=== PATIENT | female | born 1980 | race Two or more races ===

== ENCOUNTER 2016-07-14 16:03 | Emergency (ER) | payer MEDICAID ==
[2016-07-14 16:17] VITALS: BP 162/87
--- NOTE | 2016-07-14 16:53 | ER Document Report ---
HPI - HPI Patient complains to provider of: chronic bilateral foot pain Onset: Other - over a year Quality of pain: Achy, Throbbing Severity: Severe Pain Level: 5 Context: Patient presents emergency department with complaints of bilateral foot pain. She reports that she is a diabetic and experiencing diabetic neuropathy. She currently takes 300 mg of gabapentin 3 times a day with clear, 150 mg 3 times a day. She reports the medications are not helping. She denies trauma. Patient works at [employer] and her feet hurt more after she works. She denies other symptoms such as fever vomiting diarrhea. Associated Symptoms: None Exacerbated by: Walking Relieved by: Denies Similar symptoms previously: Yes Recently seen / treated by doctor: No - REPRODUCTIVE Reproductive: DENIES: : - DERM Skin Color: Normal Past Medical History - General Information source: Patient - Social History Smoking Status: Current Every Day Smoker Cigarette use (# per day): Yes Frequency of alcohol use: None Drug Abuse: None Occupation: Specialty [employer] Lives with: Family Family History: Arthritis, CAD, DM, Hyperlipidemia, Hypertension Patient has suicidal ideation: No Patient has homicidal ideation: No - Past Medical History Cardiac Medical History: Reports: Hx Congestive Heart Failure, Hx Hypertension Pulmonary Medical History: Reports: Hx Asthma Endocrine Medical History: Reports: Hx Diabetes Mellitus Type 2 Renal/ Medical History: Reports: Hx Kidney Stones. Denies: Hx Peritoneal Dialysis Past Surgical History: Reports: Hx Section - Immunizations Immunizations up to date: No Hx Diphtheria, Pertussis, Tetanus Vaccination: No Vertical Provider Document - CONSTITUTIONAL Agree With Documented VS: Yes Exam Limitations: No Limitations General Appearance: WD/WN, No Apparent Distress - INFECTION CONTROL TRAVEL OUTSIDE OF THE [place] IN LAST 30 DAYS: No - HEENT HEENT: Atraumatic, Normocephalic - NECK Neck: Supple - RESPIRATORY Respiratory: Breath Sounds Normal, No Respiratory Distress O2 Sat by Pulse Oximetry: 95 - MUSCULOSKELETAL/EXTREMETIES Musculoskeletal/Extremeties: MAEW, FROM, Tender - toes tender with palpation. Patient reports increased pain when walking. No erythema no swelling or warmth. Patient reports pain to the entire foot. no obvious deformity, no swelling - NEURO Level of Consciousness: Awake, Alert, Appropriate Motor/Sensory: No Motor Deficit - DERM Integumentary: Warm, Dry Course - Re-evaluation Re-evalutation: 07/14/16 17:26 Patient instructed to follow up with [facility] for adjustment of her medications. Until then continue gabapentin and Lyrica as prescribed. Patient was also instructed to try ibuprofen or naproxen. She was also instructed to wear good supporting foot wear, try a foot massage and pedicure. pt laughed, verbalized understanding no distress - Vital Signs Vital signs: Temp Pulse Resp BP Pulse Ox 98.3 F 104 H 18 162/87 H 95 07/14/16 16:15 07/14/16 16:15 07/14/16 16:15 07/14/16 16:15 07/14/16 16:15 Discharge - Discharge Clinical Impression: Diabetic neuropathy, Elevated blood pressure reading, chronic bilateral foot pain Condition: Stable Disposition: HOME, SELF-CARE Instructions: Neuropathy ([facility]) Additional Instructions: *You have been evaluated for chronic bilateral foot pain, diabetic neuropathy, elevated blood pressure reading *Rest/ Elevate *Take ibuprofen as indicated for pain *Follow up with your primary care provider for recheck *Takeyour medication as prescribed *Return to ED for worsening condition, changes, needs Monitor your blood pressure. Your blood pressure was elevated today. This may be because you were anxious, in pain or because you need medication. It is important to follow up with your primary care provider for full evaluation. Forms: Elevated Blood Pressure, Return to Work Referrals: [facility] [Primary Care Provider] - Follow up as needed
== END 2016-07-14 17:00 | disposition home or self-care (01) ==
LOC: ER 16:03
DX: G89.29 Other chronic pain (principal); M79.671 Pain in right foot; M79.672 Pain in left foot; E11.40 Type 2 diabetes mellitus with diabetic neuropathy, unspecified; Z79.899 Other long term (current) drug therapy; F17.210 Nicotine dependence, cigarettes, uncomplicated; I10 Essential (primary) hypertension; J45.909 Unspecified asthma, uncomplicated
CPT/HCPCS: 99283

== ENCOUNTER 2016-11-24 09:44 | Inpatient (IN) | payer MEDICAID ==
[2016-11-24] MEDS ORDERED: NORMAL SALINE 1000 ML 1,000 ML IV ONE ×2 (10:13→11:40)
--- NOTE | 2016-11-24 10:15 | ER Document Report ---
ED Medical Screen (RME) - General Chief Complaint: Flu Symptoms Stated Complaint: BACK PAIN Time Seen by Provider: 11/24/16 10:13 Notes: Patient has several days of fever vomiting cough congestion and weakness. TRAVEL OUTSIDE OF THE [place] IN LAST 30 DAYS: No - Related Data Allergies/Adverse Reactions: lisinopril [Lisinopril] Allergy (Severe, Verified 12/25/15 16:05) Swelling of Throat hydrocodone bitartrate [From Vicodin] Allergy (Intermediate, Verified 12/25/15 16:05) Hallucinations adalimumab [From Humira] Allergy (Verified 11/24/16 10:14) Past Medical History - Social History Chew tobacco use (# tins/day): No Frequency of alcohol use: None Drug Abuse: None - Past Medical History Cardiac Medical History: Reports: Hx Congestive Heart Failure, Hx Hypertension Pulmonary Medical History: Reports: Hx Asthma Endocrine Medical History: Reports: Hx Diabetes Mellitus Type 2 Renal/ Medical History: Reports: Hx Kidney Stones. Denies: Hx Peritoneal Dialysis Past Surgical History: Reports: Hx Section - Immunizations Immunizations up to date: No Hx Diphtheria, Pertussis, Tetanus Vaccination: No Physical Exam - Vital signs Vitals: Temp Pulse Resp BP Pulse Ox 99.1 F 116 H 18 179/85 H 97 11/24/16 09:52 11/24/16 09:52 11/24/16 09:52 11/24/16 09:52 11/24/16 09:52 Course - Vital Signs Vital signs: Temp Pulse Resp BP Pulse Ox 99.1 F 116 H 18 179/85 H 97 11/24/16 09:52 11/24/16 09:52 11/24/16 09:52 11/24/16 09:52 11/24/16 09:52
[2016-11-24 10:47] LABS: APPEARANCE,URINE CLEAR; BILIRUBIN,URINE NEGATIVE (NEGATIVE); GLUCOSE, URINE >=500 mg/dL (NEGATIVE); KETONES,URINE NEGATIVE (NEGATIVE); LEUKOCYTE ESTERASE,URINE NEGATIVE (NEGATIVE); NITRITE,URINE NEGATIVE (NEGATIVE); PROTEIN,URINE NEGATIVE (NEGATIVE); URINE SPECIFIC GRAVITY 1.003; UROBILINOGEN,URINE NEGATIVE mg/dL (<2.0)
[2016-11-24 10:50] LABS: ABSOLUTE BASOPHILS # (AUTO) 0.1 10^3/uL (0.0-0.2); ABSOLUTE EOSINOPHILS # (AUTO) 0.8 10^3/uL (0.0-0.6); ABSOLUTE LYMPHOCYTES (AUTO) 2.1 10^3/uL (0.5-4.7); ABSOLUTE MONOCYTES (AUTO) 1.3 10^3/uL (0.1-1.4); ABSOLUTE NEUT (AUTO) 10.3 10^3/uL (1.7-8.2); BASOPHILS % (AUTO) 0.6 % (0-2); EOSINOPHILS % (AUTO) 5.8 % (0-6); HEMATOCRIT 38.6 % (36.0-47.0); HGB HCT DIFFERENCE 0.4; MEAN CORPUSCULAR HEMOGLOBIN 25.1 pg (27.0-33.4); MEAN CORPUSCULAR HGB CONC 33.7 g/dL (32.0-36.0); MEAN CORPUSCULAR VOLUME 75 fl (80-97); MONOCYTES % (AUTO) 9.1 % (3-13); RED BLOOD COUNT 5.17 10^6/uL (3.72-5.28); RED CELL DISTRIBUTION WIDTH 16.4 % (11.5-14.0); SEGMENTED NEUTROPHILS % (AUTO) 70.5 % (42-78); WHITE BLOOD COUNT 14.6 10^3/uL (4.0-10.5)
[2016-11-24 10:54] LABS: VENOUS BLOOD BASE EXCESS 0.4 mmol/L; VENOUS BLOOD HCO3 24.5 mmol/L (20-32); VENOUS BLOOD PCO2 37.7 mmHg (35-63); VENOUS BLOOD PH 7.43 (7.30-7.42)
--- NOTE | 2016-11-24 10:56 | ER Document Report ---
ED Respiratory Problem - General Mode of Arrival: Ambulatory Information source: Patient TRAVEL OUTSIDE OF THE [place] IN LAST 30 DAYS: No - HPI Patient complains to provider of: Short of breath Onset: Yesterday Duration: Worse/persistent Severity: None Cough: Productive Sputum amount: Small Sputum color: Yellow Associated symptoms: Other - see narrative <ADÁN LAWRENCE - Last Filed: 11/24/16 11:09> <ELANA QUEEN - Last Filed: 11/24/16 14:14> - General Chief Complaint: Flu Symptoms Stated Complaint: BACK PAIN Time Seen by Provider: 11/24/16 10:13 Notes: Patient is a 36 year old insulin dependent diabetic female that presents to the emergency department today with complaints of a cough and nasal congestion beginning yesterday. Patient states that she has been coughing up yellow mucus. Patient complains of right flank pain and she states that it hurts when she breathes. (ADÁN LAWRENCE) - Related Data Allergies/Adverse Reactions: lisinopril [Lisinopril] Allergy (Severe, Verified 11/24/16 10:56) Swelling of Throat hydrocodone bitartrate [From Vicodin] Allergy (Intermediate, Verified 11/24/16 10:56) Hallucinations adalimumab [From Humira] Allergy (Verified 11/24/16 10:56) Home Medications: Current Home Medications Amlodipine Besylate [Norvasc 10 mg Tablet] 10 mg PO DAILY 11/24/16 [History] Atorvastatin Calcium [Lipitor 40 mg Tablet] 40 mg PO QHS 11/24/16 [History] Gabapentin [Neurontin 300 mg Capsule] 300 mg PO Q8 11/24/16 [History] Hydralazine HCl [Apresoline 50 mg Tablet] 75 mg PO Q12 11/24/16 [History] Hydrochlorothiazide [Hydrodiuril 25 mg Tablet] 25 mg PO DAILY 11/24/16 [History] Metformin HCl [Glucophage] 1,000 mg PO BID 11/24/16 [History] Past Medical History - Social History Smoking Status: Current Every Day Smoker Chew tobacco use (# tins/day): No Frequency of alcohol use: None Drug Abuse: None Family History: Arthritis, CAD, DM, Hyperlipidemia, Hypertension - Past Medical History Cardiac Medical History: Reports: Hx Congestive Heart Failure, Hx Hypertension Pulmonary Medical History: Reports: Hx Asthma Endocrine Medical History: Reports: Hx Diabetes Mellitus Type 2 Renal/ Medical History: Reports: Hx Kidney Stones. Denies: Hx Peritoneal Dialysis Past Surgical History: Reports: Hx Section - Immunizations Immunizations up to date: No Hx Diphtheria, Pertussis, Tetanus Vaccination: No <HOWARDADÁN - Last Filed: 11/24/16 11:09> Review of Systems - Review of Systems Constitutional: See HPI, Fever - subjective EENT: See HPI, Nose congestion Cardiovascular: No symptoms reported Respiratory: See HPI, Cough, Short of breath Gastrointestinal: No symptoms reported Genitourinary: No symptoms reported Female Genitourinary: No symptoms reported Musculoskeletal: No symptoms reported Skin: No symptoms reported Hematologic/Lymphatic: No symptoms reported Neurological/Psychological: No symptoms reported -: Yes All other systems reviewed and negative <ADÁN LAWRENCE - Last Filed: 11/24/16 11:09> Physical Exam <ADÁN LAWRENCE - Last Filed: 11/24/16 11:09> <ELANA QUEEN - Last Filed: 11/24/16 14:14> - Vital signs Vitals: Temp Pulse Resp BP Pulse Ox 99.1 F 116 H 18 179/85 H 97 11/24/16 09:52 11/24/16 09:52 11/24/16 09:52 11/24/16 09:52 11/24/16 09:52 - Notes Notes: Physical Exam: General: Alert, appears well. No acute distress. HEENT: Normocephalic. Atraumatic. PERRL. Extraocular movements intact. Oropharynx clear. Left TM is slightly injected. Neck: Supple. Non-tender. Respiratory: No respiratory distress. Decreased breath sounds bilaterally, rhonchi, wheezing, fine crackles in the right base. Cardiovascular: Regular rate and rhythm. Abdominal: Obese. Non-tender. No distension. Normal Bowel Sounds. Back: Bilateral CVA tenderness with percussion. No deformity or step off. Extremities: Moves all four extremities. Upper extremities: Normal inspection. Normal ROM. Lower extremities: 1-2+ pitting edema bilaterally. Normal ROM. Neurological: Normal cognition. AAOx4. Normal speech. Psychological: Normal affect. Normal Mood. Skin: Warm. Dry. Normal color. (ADÁN LAWRENCE) Course - Laboratory Result Diagrams: 11/24/16 10:33 11/24/16 10:33 <ADÁN LAWRENCE - Last Filed: 11/24/16 11:09> - Laboratory Result Diagrams: 11/24/16 10:33 11/24/16 10:33 - EKG Interpretation by Me Rate: Tachycardia - Rate 115, nonspecific ST and T-wave abnormalities though appear consistent with August 23, 2015. Left atrial enlargement, normal QRS duration - Consults Dr. Garcia Time consulted: 14:12 - Consult for admission <ELANA QUEEN - Last Filed: 11/24/16 14:14> - Re-evaluation Re-evalutation: 11/24/16 11:47 Patient does meet criteria for sepsis with a tachycardia, increased respiratory and white blood cell count rate. Clinically I thought she had a right sided pneumonia but I cannot clearly document this on x-ray. She is having significant bronchospasm so we will admit her to the hospital. 30 mL's per kilogram bolus would put this patient at 4.2 L Fluids and with her history of CHF, it would be more prudent to watch her after the first 2L NS Bolus. ( ELANA QUEEN) - Vital Signs Vital signs: Temp Pulse Resp BP Pulse Ox 99.1 F 116 H 15 141/88 H 95 11/24/16 09:52 11/24/16 09:52 11/24/16 14:01 11/24/16 14:00 11/24/16 14:01 - Laboratory Laboratory results interpreted by me: 11/24/16 11/24/16 11/24/16 10:20 10:33 10:33 WBC 14.6 H MCV 75 L MCH 25.1 L RDW 16.4 H Plt Count 486 H Absolute Neutrophils 10.3 H Absolute Eosinophils 0.8 H VBG pH Chloride 96 L Creatinine 0.50 L Glucose 236 H Lactic Acid Calcium 10.3 H Urine Glucose (UA) >=500 H 11/24/16 11/24/16 10:33 10:33 WBC MCV MCH RDW Plt Count Absolute Neutrophils Absolute Eosinophils VBG pH 7.43 H Chloride Creatinine Glucose Lactic Acid 2.6 H Calcium Urine Glucose (UA) Discharge <ADÁN LAWRENCE - Last Filed: 11/24/16 11:09> - Discharge Admitting Provider: Dr. Garcia Unit Admitted: Medical Floor <ELANA QUEEN - Last Filed: 11/24/16 14:14> - Discharge Clinical Impression: Pneumonia, Bronchospasm, Sepsis criteria, Diabetes mellitus Condition: Good Disposition: ADMITTED OBSERVATION Scribe Documentation - Scribe Written by Scribe:: Gavin Villegas, 11/24/2016 1117 acting as scribe for :: Gris <ADÁN LAWRENCE - Last Filed: 11/24/16 11:09>
[2016-11-24] MEDS ORDERED: IPRATROPIUM/ALBUTEROL 0.5-2.5 MG/3 ML AMPUL NEB ONE ×2 (10:57→14:14)
[2016-11-24 11:14] LABS: ALANINE AMINOTRANSFERASE 27 U/L (9-52); ALBUMIN 4.6 g/dL (3.5-5.0); ALKALINE PHOSPHATASE 106 U/L (38-126); ANION GAP 18 (5-19); ASPARTATE AMINO TRANSFERASE 18 U/L (14-36); BILIRUBIN,DIRECT 0.4 mg/dL (0.0-0.4); BILIRUBIN,TOTAL 0.6 mg/dL (0.2-1.3); BLOOD UREA NITROGEN 7 mg/dL (7-20); CALCIUM 10.3 mg/dL (8.4-10.2); CARBON DIOXIDE 25 mmol/L (22-30); CHLORIDE 96 mmol/L (98-107); GLUCOSE 236 mg/dL (75-110); POTASSIUM 4.2 mmol/L (3.6-5.0); SODIUM 138.5 mmol/L (137-145); TOTAL PROTEIN 8.1 g/dL (6.3-8.2)
[2016-11-24] MEDS ORDERED: ACETAMINOPHEN WITH CODEINE #3 TABLET PO ONE (11:31)
[2016-11-24] MEDS ORDERED: CEFTRIAXONE 1 GM/D5W RTU 1 GM/50 ML RTUPB IV ONE (11:32)
[2016-11-24] MEDS ORDERED: METHYLPREDNISOLONE INJ 125 MG/2 ML SDV IV ONE (11:44)
[2016-11-24] MEDS ORDERED: AZITHROMYCIN INJ 500 MG VIAL IV ONE (11:45)
--- NOTE | 2016-11-24 11:48 | RADIOLOGY REPORT (SQ) ---
EXAM DESCRIPTION: CHEST PA/LAT COMPLETED DATE/TIME: 11/24/2016 11:17 am REASON FOR STUDY: cough COMPARISON: Two-view chest 08/23/2015, 11/13/2014 EXAM PARAMETERS: NUMBER OF VIEWS: two views TECHNIQUE: Digital Frontal and Lateral radiographic views of the chest acquired. RADIATION DOSE: NA LIMITATIONS: none FINDINGS: LUNGS AND PLEURA: No opacities, masses or pneumothorax. No pleural effusion. MEDIASTINUM AND HILAR STRUCTURES: No masses or contour abnormalities. HEART AND VASCULAR STRUCTURES: Heart normal size. No evidence for failure. BONES: No acute findings. HARDWARE: None in the chest. OTHER: No other significant finding. IMPRESSION: NO SIGNIFICANT RADIOGRAPHIC FINDING IN THE CHEST. TECHNICAL DOCUMENTATION: JOB ID: [id number] [employer]- All Rights Reserved
--- NOTE | 2016-11-24 13:59 | EKG REPORT ---
SEVERITY:- ABNORMAL ECG - SINUS TACHYCARDIA PROBABLE LEFT ATRIAL ABNORMALITY ABNORMAL Q SUGGESTS ANTERIOR INFARCT : Confirmed by: Jake Yusuf MD 24-Nov-2016 13:58:38
[2016-11-24] MEDS ORDERED: LEVALBUTEROL HCL NEB 1.25 MG/3 ML AMPUL NEB PRN (16:54)
[2016-11-24] MEDS ORDERED: NORMAL SALINE 1000 ML 1,000 ML IV PRN (16:54)
[2016-11-24] MEDS ORDERED: ONDANSETRON HCL INJ/PF 4 MG/2 ML SDV IV PRN (17:17)
[2016-11-24] MEDS ORDERED: ACETAMINOPHEN 325 MG TABLET PO PRN (17:17)
[2016-11-24] MEDS ORDERED: DEXTROSE 50%-WATER 25 GM/50 ML DISP.SYRIN IV PRN ×2 (17:30)
[2016-11-24] MEDS ORDERED: GLUCAGON,HUMAN RECOMB 1 MG INJ IM PRN (17:30)
[2016-11-24] MEDS ORDERED: DEXTROSE 40% GEL 15 GM TUBE PO PRN ×2 (17:30)
--- NOTE | 2016-11-24 17:48 | PDOC H&P ---
History of Present Illness Admission Date/PCP: 11/24/16 14:24 MEÑO HUNTER Patient complains of: Cough and fever History of Present Illness: MOLLY GENTILE is a 36 year old female, with history of diabetes as well as hypertension who presents to the emergency room because of increasing and worsening cough for the last 24 hours. Patient started having cough and wheezing for the past 3 days. There is phlegm that is yellow in color. She has more shortness of breath on exertion. Denies paroxysmal nocturnal dyspnea or any orthopnea. The patient has some sinus congestion and mild sore throat. This subsequently developed chest congestion and wheezing with associated low- grade fever. Patient measured it at 99.5. Because of the worsening cough earlier upon waking up, she decided to go to the emergency room for evaluation. Chest x-ray did not reveal any acute infiltrate but the patient was noted to be tachycardic with low-grade fever elevated WBC and elevated lactic acid level. The patient was begun on sepsis protocol and was referred for admission. Past Medical History Cardiac Medical History: Reports: Congestive Heart Failure, Hypertension Pulmonary Medical History: Reports: Asthma Endocrine Medical History: Reports: Diabetes Mellitus Type 2 Psychiatric Medical History: Reports: Depression Past Surgical History Past Surgical History: Reports: Section Social History Information Source: Patient Smoking Status: Current Every Day Smoker Cigarettes Packs Per Day: 1 Number of Years Smokin Last Time Smoked: 11/22/16 Frequency of Alcohol Use: Rare Hx Recreational Drug Use: No Drugs: None Hx Prescription Drug Abuse: No - Advance Directive Resuscitation Status: Full Code Family History Family History: Arthritis, CAD, DM, Hyperlipidemia, Hypertension Parental Family History Reviewed: Yes Children Family History Reviewed: Yes Sibling(s) Family History Reviewed.: Yes Medication/Allergy Home Medications: Amlodipine Besylate [Norvasc 10 mg Tablet] 10 mg PO DAILY 11/24/16 Atorvastatin Calcium [Lipitor 40 mg Tablet] 40 mg PO QHS 11/24/16 Gabapentin [Neurontin 300 mg Capsule] 300 mg PO Q8 11/24/16 Hydralazine HCl [Apresoline 50 mg Tablet] 75 mg PO Q12 11/24/16 Hydrochlorothiazide [Hydrodiuril 25 mg Tablet] 25 mg PO DAILY 11/24/16 Metformin HCl [Glucophage] 1,000 mg PO BID 11/24/16 Pregabalin [Lyrica] 150 mg PO Q8 11/24/16 Allergies/Adverse Reactions: lisinopril [Lisinopril] Allergy (Severe, Verified 11/24/16 10:56) Swelling of Throat hydrocodone bitartrate [From Vicodin] Allergy (Intermediate, Verified 11/24/16 10:56) Hallucinations adalimumab [From Humira] Allergy (Verified 11/24/16 10:56) Review of Systems Constitutional: ABSENT: chills, fever(s), headache(s), weight gain, weight loss Eyes: ABSENT: visual disturbances Ears: ABSENT: hearing changes Nose, Mouth, and Throat: PRESENT: headache(s), sore throat. ABSENT: mouth pain , vertigo Cardiovascular: PRESENT: dyspnea on exertion, edema - Chronic. ABSENT: chest pain, orthropnea, palpitations Respiratory: PRESENT: cough, sputum - Yellowish. ABSENT: hemoptysis Gastrointestinal: ABSENT: abdominal pain, constipation, diarrhea, hematemesis, hematochezia, melena, nausea, vomiting Genitourinary: ABSENT: dysuria, hematuria Musculoskeletal: ABSENT: joint swelling Integumentary: ABSENT: rash, wounds Neurological: ABSENT: abnormal gait, abnormal speech, confusion, dizziness, focal weakness, syncope Psychiatric: ABSENT: anxiety, depression, homidical ideation, suicidal ideation Endocrine: ABSENT: cold intolerance, heat intolerance, polydipsia, polyuria Hematologic/Lymphatic: ABSENT: easy bleeding, easy bruising Physical Exam Vital Signs: Temp Pulse Resp BP Pulse Ox 98.3 F 112 H 16 136/66 H 93 11/24/16 16:46 11/24/16 16:46 11/24/16 16:46 11/24/16 16:46 11/24/16 16:46 General appearance: PRESENT: no acute distress, morbidly obese Head exam: PRESENT: atraumatic, normocephalic Eye exam: PRESENT: conjunctiva pink, EOMI, PERRLA. ABSENT: scleral icterus Ear exam: PRESENT: normal external ear exam Mouth exam: PRESENT: moist, neck supple, tongue midline Throat exam: ABSENT: post pharyngeal erythema, tonsillar erythema Neck exam: ABSENT: carotid bruit, JVD, lymphadenopathy, thyromegaly Respiratory exam: PRESENT: clear to auscultation terry - Anteriorly, wheezes - Mild posteriorly bilateral. ABSENT: rales, rhonchi Cardiovascular exam: PRESENT: RRR, tachycardia. ABSENT: diastolic murmur, rubs , systolic murmur Pulses: PRESENT: normal dorsalis pedis pul Vascular exam: PRESENT: normal capillary refill GI/Abdominal exam: PRESENT: normal bowel sounds, soft. ABSENT: distended - Obese, guarding, mass, organolmegaly, rebound, tenderness Rectal exam: PRESENT: deferred Extremities exam: PRESENT: full ROM, other - Nonpitting edema bilateral lower extremities. ABSENT: calf tenderness, clubbing Neurological exam: PRESENT: alert, awake, oriented to person, oriented to place , oriented to time, oriented to situation Psychiatric exam: PRESENT: appropriate affect, normal mood. ABSENT: homicidal ideation, suicidal ideation Skin exam: PRESENT: dry, intact, warm. ABSENT: cyanosis, rash Results Laboratory Results: 11/24/16 14:38 Lactic Acid 2.7 H Impressions: Chest X-Ray 11/24/16 10:14 IMPRESSION: NO SIGNIFICANT RADIOGRAPHIC FINDING IN THE CHEST. Assessment & Plan - Diagnosis (1) Sepsis Qualifiers: Sepsis type: sepsis due to unspecified organism Qualified Code(s): A41.9 - Sepsis, unspecified organism Is this a current diagnosis for this admission?: Yes (2) Exacerbation of asthma Is this a current diagnosis for this admission?: Yes (3) Acute bronchitis Qualifiers: Bronchitis organism: unspecified organism Qualified Code(s): J20.9 - Acute bronchitis, unspecified Is this a current diagnosis for this admission?: Yes (4) Acute sinusitis Qualifiers: Sinusitis location: unspecified location Recurrence: not specified as recurrent Qualified Code(s): J01.90 - Acute sinusitis, unspecified Is this a current diagnosis for this admission?: Yes (5) Hypercalcemia Is this a current diagnosis for this admission?: Yes (6) Diabetes mellitus type 2 in obese Is this a current diagnosis for this admission?: Yes (7) Essential hypertension Is this a current diagnosis for this admission?: Yes (8) Hirsutism Is this a current diagnosis for this admission?: Yes - Time Time Spent: 50 to 70 Minutes - Inpatient Certification Based on my medical assessment, after consideration of the patient's comorbidities, presenting symptoms, or acuity I expect that the services needed warrant INPATIENT care.: Yes I certify that my determination is in accordance with my understanding of Medicare's requirements for reasonable and necessary INPATIENT services [42 CFR 412.3e].: Yes Medical Necessity: Significant Comorbidiites Make Outpatient Treatment Too Risky , Need For IV Fluids, Need for IV Antibiotics Post Hospital Care: D/C [employer] Documentation - Plan Summary Plan Summary: The patient will be admitted to telemetry. We will begin the patient on steroids and [id number] nebulizers. Antibiotic with Levaquin will be started, patient will be hydrated with normal saline and electrolytes will be monitored. Cultures were sent in the emergency room and will be followed. Lovenox for DVT prophylaxis. Supplemental oxygen will be placed. Further testing depends on the initial evaluations outlined above.
[2016-11-24] MEDS: LEVALBUTEROL HCL NEB 1.25 MG/3 ML AMPUL NEB SCH (19:51)
[2016-11-24] MEDS: GABAPENTIN 300 MG CAPSULE PO SCH (22:00)
[2016-11-24] MEDS: DOCUSATE SODIUM 100 MG CAPSULE PO SCH (22:00)
[2016-11-24] MEDS: HYDRALAZINE HCL 50 MG TABLET PO SCH (22:01)
[2016-11-24] MEDS: ATORVASTATIN CALCIUM 40 MG TABLET PO SCH (22:02)
[2016-11-24] MEDS: PREGABALIN 75 MG CAPSULE PO SCH (22:02)
[2016-11-24] MEDS: INSULIN REG, HUMAN 100 UNIT/ML 3 ML VIAL (PYX) SUBCUT PRN (23:05)
[2016-11-25] MEDS: LEVALBUTEROL HCL NEB 1.25 MG/3 ML AMPUL NEB SCH ×7 (00:07→23:30)
[2016-11-25 05:35] LABS: ANION GAP 13 (5-19); BLOOD UREA NITROGEN 10 mg/dL (7-20); CALCIUM 10.4 mg/dL (8.4-10.2); CARBON DIOXIDE 24 mmol/L (22-30); CHLORIDE 102 mmol/L (98-107); CREATININE RESULT 0.45 mg/dL (0.52-1.25); GLUCOSE 252 mg/dL (75-110); POTASSIUM 4.3 mmol/L (3.6-5.0); SODIUM 138.8 mmol/L (137-145)
[2016-11-25] MEDS: PREGABALIN 75 MG CAPSULE PO SCH (06:20)
[2016-11-25] MEDS: LANSOPRAZOLE 30 MG TAB.RAP.DR PO SCH (06:20)
[2016-11-25] MEDS: GABAPENTIN 300 MG CAPSULE PO SCH ×3 (06:20→21:10)
[2016-11-25] MEDS ORDERED: FLUCONAZOLE 100 MG TABLET PO ONE (09:00)
[2016-11-25] MEDS ORDERED: LEVOFLOXACIN 750 MG/D5W RTU 750 MG/150 ML RTUPB IV SCH (10:00)
[2016-11-25] MEDS: HYDRALAZINE HCL 50 MG TABLET PO SCH ×2 (10:00→21:10)
[2016-11-25] MEDS: PREDNISONE 20 MG TABLET PO SCH (10:01)
[2016-11-25] MEDS: DOCUSATE SODIUM 100 MG CAPSULE PO SCH ×2 (10:01→17:48)
[2016-11-25] MEDS: AMLODIPINE BESYLATE 10 MG TABLET PO SCH (10:02)
[2016-11-25] MEDS: ENOXAPARIN SODIUM INJ 40 MG/0.4 ML DISP.SYRIN SUBCUT SCH (10:02)
--- NOTE | 2016-11-25 13:55 | PDOC PROGRESS REPORT ---
Subjective Progress Note for:: 11/25/16 Subjective:: Patient complains of vaginal discharge and itching. Shortness of breath is better. Wheezing is less. No diarrhea nausea or vomiting. No chills or fever. No reported worsening respiratory status. Physical Exam Vital Signs: Temp Pulse Resp BP Pulse Ox 98.3 F 112 H 16 138/77 H 95 11/25/16 07:54 11/25/16 13:26 11/25/16 12:47 11/25/16 07:54 11/25/16 12:47 Pulse Oximeter Continuous Start: 11/24/16 17: 25 Freq: RTQ4 Status: Active Document 11/25/16 12:47 JDR (Rec: 11/25/16 12:48 JDR [email or web address]) Pulse Oximetry Assessment Oxygen Saturation (92-100) 95 Oxygen Delivery Method Room Air Fraction of Inspired Oxygen (FIO2) 21 Equipment Usage Equipment in Use Continuous SpO2 Machine # 10 Intake & Output 11/24/16 11/25/16 11/26/16 06:59 06:59 06:59 Intake Total 2802 480 Output Total 1500 600 Balance 1302 -120 Weight 142.3 kg General appearance: PRESENT: no acute distress, cooperative, morbidly obese Head exam: PRESENT: normocephalic Eye exam: PRESENT: EOMI Mouth exam: PRESENT: moist, neck supple Neck exam: ABSENT: JVD Respiratory exam: PRESENT: wheezes - Mild posteriorly bilateral improved compared to yesterday.. ABSENT: crackles, rhonchi Cardiovascular exam: PRESENT: RRR. ABSENT: gallop GI/Abdominal exam: PRESENT: normal bowel sounds, soft. ABSENT: distended - Obese, tenderness Extremities exam: PRESENT: other - Nonpitting edema. Neurological exam: PRESENT: alert, awake, oriented to situation Skin exam: PRESENT: dry, warm. ABSENT: cyanosis Results Laboratory Results: 11/25/16 04:48 11/25/16 04:48 Sodium 138.8 Potassium 4.3 Chloride 102 Carbon Dioxide 24 Anion Gap 13 BUN 10 Creatinine 0.45 L Est GFR ( Amer) > 60 Est GFR (Non-Af Amer) > 60 Glucose 252 H Calcium 10.4 H Impressions: Chest X-Ray 11/24/16 10:14 IMPRESSION: NO SIGNIFICANT RADIOGRAPHIC FINDING IN THE CHEST. Assessment & Plan - Diagnosis (1) Sepsis Qualifiers: Sepsis type: sepsis due to unspecified organism Qualified Code(s): A41.9 - Sepsis, unspecified organism Is this a current diagnosis for this admission?: Yes (2) Exacerbation of asthma Is this a current diagnosis for this admission?: Yes (3) Acute bronchitis Qualifiers: Bronchitis organism: unspecified organism Qualified Code(s): J20.9 - Acute bronchitis, unspecified Is this a current diagnosis for this admission?: Yes (4) Acute sinusitis Qualifiers: Sinusitis location: unspecified location Recurrence: not specified as recurrent Qualified Code(s): J01.90 - Acute sinusitis, unspecified Is this a current diagnosis for this admission?: Yes (5) Hypercalcemia Is this a current diagnosis for this admission?: Yes (6) Diabetes mellitus type 2 in obese Is this a current diagnosis for this admission?: Yes (7) Essential hypertension Is this a current diagnosis for this admission?: Yes (8) Hirsutism Is this a current diagnosis for this admission?: Yes - Time Time Spent with patient: 25-34 minutes - Plan Summary Plan Summary: Continue steroids and nebulizers as well as antibiotics. Give Diflucan. Follow cultures. The patient continues to improve in the morning possibly can be discharged home. Continue to hold diuretic due to hypercalcemia.
[2016-11-25] MEDS: INSULIN REG, HUMAN 100 UNIT/ML 3 ML VIAL (PYX) SUBCUT PRN ×3 (14:39→21:54)
[2016-11-25] MEDS: NORMAL SALINE 1000 ML 1,000 ML IV PRN (17:47)
[2016-11-25] MEDS: ATORVASTATIN CALCIUM 40 MG TABLET PO SCH (21:10)
[2016-11-26] MEDS: LEVALBUTEROL HCL NEB 1.25 MG/3 ML AMPUL NEB SCH ×3 (03:04→11:38)
[2016-11-26] MEDS: GABAPENTIN 300 MG CAPSULE PO SCH (06:16)
[2016-11-26] MEDS: LANSOPRAZOLE 30 MG TAB.RAP.DR PO SCH (06:16)
[2016-11-26 06:33] LABS: ANION GAP 10 (5-19); BLOOD UREA NITROGEN 12 mg/dL (7-20); CALCIUM 9.1 mg/dL (8.4-10.2); CARBON DIOXIDE 25 mmol/L (22-30); CHLORIDE 104 mmol/L (98-107); CREATININE RESULT 0.52 mg/dL (0.52-1.25); GLUCOSE 227 mg/dL (75-110); POTASSIUM 3.4 mmol/L (3.6-5.0); SODIUM 139.4 mmol/L (137-145)
[2016-11-26] MEDS: INSULIN REG, HUMAN 100 UNIT/ML 3 ML VIAL (PYX) SUBCUT PRN (08:04)
[2016-11-26] MEDS: NORMAL SALINE 1000 ML 1,000 ML IV PRN (08:07)
[2016-11-26] MEDS ORDERED: POTASSIUM CHLORIDE 10 MEQ TABLET.SA PO ONE (09:01)
--- NOTE | 2016-11-26 09:17 | PDOC DISCHARGE SUMMARY ---
General - Admit/Disc Date/PCP Admission Date/Primary Care Provider: 11/24/16 16:32 MEÑO HUNTER Discharge Date: 11/26/16 - Discharge Diagnosis (1) Sepsis Is this a current diagnosis for this admission?: Yes (2) Exacerbation of asthma Is this a current diagnosis for this admission?: Yes (3) Acute bronchitis Is this a current diagnosis for this admission?: Yes (4) Acute sinusitis Is this a current diagnosis for this admission?: Yes (5) Hypercalcemia Is this a current diagnosis for this admission?: Yes (6) Diabetes mellitus type 2 in obese Is this a current diagnosis for this admission?: Yes (7) Essential hypertension Is this a current diagnosis for this admission?: Yes (8) Hirsutism Is this a current diagnosis for this admission?: Yes - Additional Information Resuscitation Status: Full Code Discharge Diet: Cardiac - Low-fat low-salt, Diabetic - No concentrated sweets Discharge Activity: Activity As Tolerated, Balance Activity w/Rest, Slowly Increase Activity Home Medications: Amlodipine Besylate [Norvasc 10 mg Tablet] 10 mg PO DAILY 11/24/16 Atorvastatin Calcium [Lipitor 40 mg Tablet] 40 mg PO QHS 11/24/16 Gabapentin [Neurontin 300 mg Capsule] 300 mg PO Q8 11/24/16 Hydralazine HCl [Apresoline 50 mg Tablet] 75 mg PO Q12 11/24/16 Metformin HCl [Glucophage] 1,000 mg PO BID 11/24/16 Pregabalin [Lyrica] 150 mg PO Q8 11/24/16 Fluconazole [Diflucan] 150 mg PO ONCE PRN #1 tablet 11/26/16 Levalbuterol HCl [Xopenex Neb 1.25 mg/3 ml Ampul] 1.25 mg NEB RTQ4 #120 vial.neb 11/26/16 Levofloxacin [Levaquin 750 mg Tablet] 750 mg PO DAILY #10 tab 11/26/16 Prednisone [Sterapred Ds] 1 pkg PO ASDIR PRN 12 Days tab.ds.pk 11/26/16 Additional Information: Basic metabolic panel as outpatient with primary care physician in 1 week. Follow-up final results of blood culture and sputum culture outpatient with primary care physician. Return to work on November 29, 2016. Return to the emergency room if symptoms recur or worsens. History of Present Illness Patient complains of: Cough History of Present Illness: MOLLY GENTILE is a 36 year old female, with history of diabetes as well as hypertension who presents to the emergency room because of increasing and worsening cough for the last 24 hours. Patient started having cough and wheezing for the past 3 days. There is phlegm that is yellow in color. She has more shortness of breath on exertion. Denies paroxysmal nocturnal dyspnea or any orthopnea. The patient has some sinus congestion and mild sore throat. This subsequently developed chest congestion and wheezing with associated low- grade fever. Patient measured it at 99.5. Because of the worsening cough earlier upon waking up, she decided to go to the emergency room for evaluation. Chest x-ray did not reveal any acute infiltrate but the patient was noted to be tachycardic with low-grade fever elevated WBC and elevated lactic acid level. The patient was begun on sepsis protocol and was referred for admission. Hospital Course Hospital Course: The patient was admitted to telemetry. Patient was hydrated with normal saline. There is no infiltrate on chest x-ray. Patient was begun on steroids and [id number] nebulizer. Intravenous antibiotic was likewise given. Patient symptomatically improved the following morning. Electrolytes were monitored and they were replaced. Patient complains of some vaginal itchiness and stated that she developed yeast infection after intake of antibiotic therefore Diflucan 1 dose was given. The patient improved after 48 hours of treatment. Room air oxygenation and discharge was greater than 90%. The rest of the hospital stays unremarkable. Patient was eventually discharged home improved. Charge senior program planner was consulted for medication assistance. Physical Exam Vital Signs: Temp Pulse Resp BP Pulse Ox 98.2 F 96 18 143/85 H 96 11/26/16 07:27 11/26/16 07:42 11/26/16 07:42 11/26/16 07:27 11/26/16 07:42 Pulse Oximeter Continuous Start: 11/24/16 17: 25 Freq: RTQ4 Status: Active Document 11/26/16 07:42 LDA (Rec: 11/26/16 08:51 [email or web address] [email or web address]) Pulse Oximetry Assessment Oxygen Saturation (92-100) 96 Oxygen Delivery Method Room Air Fraction of Inspired Oxygen (FIO2) 21 Equipment Usage Equipment in Use Continuous SpO2 Machine # [id number] Intake & Output 11/25/16 11/26/16 11/27/16 06:59 06:59 06:59 Intake Total 2802 6220 Output Total 2790 3900 Balance 1302 2396 Weight 142.3 kg 142.3 kg General appearance: PRESENT: no acute distress, cooperative, obese Head exam: PRESENT: normocephalic Eye exam: PRESENT: EOMI Mouth exam: PRESENT: moist, neck supple Neck exam: ABSENT: JVD Respiratory exam: PRESENT: clear to auscultation terry. ABSENT: rhonchi, wheezes Cardiovascular exam: PRESENT: RRR. ABSENT: gallop GI/Abdominal exam: PRESENT: soft. ABSENT: distended, tenderness Extremities exam: PRESENT: other - Trace pretibial edema Neurological exam: PRESENT: alert, awake, oriented to situation Skin exam: PRESENT: dry, warm. ABSENT: abrasion Results Laboratory Results: 11/26/16 05:26 11/26/16 05:26 Sodium 139.4 Potassium 3.4 L Chloride 104 Carbon Dioxide 25 Anion Gap 10 BUN 12 Creatinine 0.52 Est GFR ( Amer) > 60 Est GFR (Non-Af Amer) > 60 Glucose 227 H Calcium 9.1 Impressions: Chest X-Ray 11/24/16 10:14 IMPRESSION: NO SIGNIFICANT RADIOGRAPHIC FINDING IN THE CHEST. Qualifiers PATEINT BEING DISCHARGED WITH ANY OF THE FOLLOWING DIAGNOSIS?: No Plan Discharge Plan: Follow-up with primary care physician in 1 week Time Spent: Less than 30 Minutes
[2016-11-26] MEDS: AMLODIPINE BESYLATE 10 MG TABLET PO SCH (09:38)
[2016-11-26] MEDS: HYDRALAZINE HCL 50 MG TABLET PO SCH (09:38)
[2016-11-26] MEDS: PREDNISONE 20 MG TABLET PO SCH (09:39)
[2016-11-26] MEDS: ENOXAPARIN SODIUM INJ 40 MG/0.4 ML DISP.SYRIN SUBCUT SCH (09:40)
[2016-11-26] MEDS: DOCUSATE SODIUM 100 MG CAPSULE PO SCH (09:40)
[2016-11-26] MEDS ORDERED: LEVOFLOXACIN 750 MG TABLET PO SCH (10:00)
[2016-11-26 13:05] VITALS: BP 140/78
== END 2016-11-26 13:25 | disposition home or self-care (01) | DRG 872 ==
LOC: ER 09:44 → EH 14:24 → 4N 16:05 → OBSVTOIN 16:32
DX: A41.9 Sepsis, unspecified organism (principal); J45.901 Unspecified asthma with (acute) exacerbation; Z68.42 Body mass index [BMI] 45.0-49.9, adult; J20.9 Acute bronchitis, unspecified; J01.90 Acute sinusitis, unspecified; I11.0 Hypertensive heart disease with heart failure; I50.9 Heart failure, unspecified; E11.9 Type 2 diabetes mellitus without complications; B37.3 Candidiasis of vulva and vagina; F32.9 Major depressive disorder, single episode, unspecified; F17.210 Nicotine dependence, cigarettes, uncomplicated; E83.52 Hypercalcemia; L68.0 Hirsutism; E66.9 Obesity, unspecified; Z82.61 Family history of arthritis; Z79.84 Long term (current) use of oral hypoglycemic drugs; Z88.8 Allergy status to other drugs, medicaments and biological substances; Z82.49 Family history of ischemic heart disease and other diseases of the circulatory system; Z83.3 Family history of diabetes mellitus
CPT/HCPCS: 36415; 71020; 80048; 80053; 81001; 81025; 82803; 82962; 83605; 84443; 85025; 87040; 87070; 87086; 87205; 87804; 93005; 93010; 94640; 94762; 96361; 96365; 96367; 96375; 99285; J0456; J0696; J1650; J1815; J1956; J2930; J3490; J7030; J7512; J7620

== ENCOUNTER 2017-04-27 22:35 | Emergency (ER) | payer MEDICAID ==
--- NOTE | 2017-04-28 00:13 | ER Document Report ---
ED Medical Screen (RME) - General Chief Complaint: Leg pain and swelling Stated Complaint: LEFT LEG PAIN Time Seen by Provider: 04/28/17 00:10 Mode of Arrival: Ambulatory Information source: Patient Notes: 36 yo diabetic 2, obese, htn, female c/o left lower calf pain/swelling and medial left knee pain for 3 days. No injury. Mom told her it might be a blood clot. No hx DVT, PE. No chest pain or SOB. TRAVEL OUTSIDE OF THE [place] IN LAST 30 DAYS: No - Related Data Allergies/Adverse Reactions: lisinopril [Lisinopril] Allergy (Severe, Verified 11/24/16 10:56) Swelling of Throat hydrocodone bitartrate [From Vicodin] Allergy (Intermediate, Verified 11/24/16 10:56) Hallucinations adalimumab [From Humira] Allergy (Verified 11/24/16 10:56) Past Medical History - Past Medical History Cardiac Medical History: Reports: Hx Congestive Heart Failure, Hx Hypertension Pulmonary Medical History: Reports: Hx Asthma Endocrine Medical History: Reports: Hx Diabetes Mellitus Type 2 Renal/ Medical History: Reports: Hx Kidney Stones. Denies: Hx Peritoneal Dialysis Psychiatric Medical History: Reports: Hx Depression Past Surgical History: Reports: Hx Section - Immunizations Immunizations up to date: No Hx Diphtheria, Pertussis, Tetanus Vaccination: No Physical Exam - Vital signs Vitals: Temp Pulse Resp BP Pulse Ox 97.8 F 111 H 20 156/96 H 97 04/27/17 22:48 04/27/17 22:48 04/27/17 22:48 04/27/17 22:48 04/27/17 22:48 Course - Vital Signs Vital signs: Temp Pulse Resp BP Pulse Ox 97.8 F 111 H 20 156/96 H 97 04/27/17 22:48 04/27/17 22:48 04/27/17 22:48 04/27/17 22:48 04/27/17 22:48
[2017-04-28 00:48] LABS: ABSOLUTE BASOPHILS # (AUTO) 0.2 10^3/uL (0.0-0.2); ABSOLUTE EOSINOPHILS # (AUTO) 0.6 10^3/uL (0.0-0.6); ABSOLUTE LYMPHOCYTES (AUTO) 4.1 10^3/uL (0.5-4.7); ABSOLUTE MONOCYTES (AUTO) 0.8 10^3/uL (0.1-1.4); ABSOLUTE NEUT (AUTO) 10.6 10^3/uL (1.7-8.2); BASOPHILS % (AUTO) 1.1 % (0-2); EOSINOPHILS % (AUTO) 3.6 % (0-6); HEMATOCRIT 41.2 % (36.0-47.0); HEMOGLOBIN 13.7 g/dL (12.0-15.5); MEAN CORPUSCULAR HEMOGLOBIN 25.8 pg (27.0-33.4); MEAN CORPUSCULAR HGB CONC 33.2 g/dL (32.0-36.0); MEAN CORPUSCULAR VOLUME 78 fl (80-97); MONOCYTES % (AUTO) 5.1 % (3-13); PLATELET COUNT 529 10^3/uL (150-450); RED CELL DISTRIBUTION WIDTH 15.3 % (11.5-14.0); SEGMENTED NEUTROPHILS % (AUTO) 65.2 % (42-78); TOTAL CELLS COUNTED % (AUTO) 100 %; WHITE BLOOD COUNT 16.3 10^3/uL (4.0-10.5)
[2017-04-28 01:03] LABS: ALANINE AMINOTRANSFERASE 41 U/L (9-52); ALBUMIN 4.7 g/dL (3.5-5.0); ALKALINE PHOSPHATASE 87 U/L (38-126); ANION GAP 14 (5-19); ASPARTATE AMINO TRANSFERASE 22 U/L (14-36); BILIRUBIN,DIRECT 0.3 mg/dL (0.0-0.4); BILIRUBIN,TOTAL 0.3 mg/dL (0.2-1.3); BLOOD UREA NITROGEN 14 mg/dL (7-20); CALCIUM 10.2 mg/dL (8.4-10.2); CARBON DIOXIDE 29 mmol/L (22-30); CHLORIDE 98 mmol/L (98-107); GLUCOSE 176 mg/dL (75-110); INTERNATIONAL RATION (INR) 0.87; PARTIAL THROMBOPLASTIN TIME 29.9 SEC (23.5-35.8); POTASSIUM 4.1 mmol/L (3.6-5.0); PROTHROMBIN TIME 12.5 SEC (11.4-15.4); SODIUM 140.8 mmol/L (137-145); TOTAL PROTEIN 7.9 g/dL (6.3-8.2)
--- NOTE | 2017-04-28 06:20 | RADIOLOGY REPORT (SQ) ---
EXAM DESCRIPTION: KNEE LEFT 4 VIEW CLINICAL HISTORY: pain to left knee to foot COMPARISON: None. FINDINGS: 4 views of the left knee. No acute fracture or dislocation. Normal osseous mineralization. Mild 3 compartment osteoarthritic change. No joint effusion identified. IMPRESSION: No acute fracture or dislocation.
--- NOTE | 2017-04-28 06:36 | ER Document Report ---
ED Extremity Problem, Lower - General Chief Complaint: Leg pain and swelling Stated Complaint: LEFT LEG PAIN Time Seen by Provider: 04/28/17 00:10 Mode of Arrival: Ambulatory Information source: Patient Notes: 36-year-old female presents to ED for complaint of left leg pain from her knee front part of her knee down to her ankle and foot for 3 days. Patient denies any injuries she is a morbidly obese at 142 kg with BMI of 49. She states her mother told her it might have a DVT, so she came to the emergency room. She has no history of DVT PE chest pain shortness of breath. TRAVEL OUTSIDE OF THE [place] IN LAST 30 DAYS: Yes - HPI Patient complains to provider of: Pain. No: Injury, Swelling Location: Ankle, Foot, Knee, Leg Occurred: Other - 3 days Where: Home Onset/Duration: Gradual Quality of pain: Sharp Severity: Moderate Pain Level: 4 Context: Other - Pain with ambulation Recent injury: No Associated symptoms: Painful ambulation Exacerbated by: Movement, Walking Relieved by: Nothing - Related Data Allergies/Adverse Reactions: lisinopril [Lisinopril] Allergy (Severe, Verified 11/24/16 10:56) Swelling of Throat hydrocodone bitartrate [From Vicodin] Allergy (Intermediate, Verified 11/24/16 10:56) Hallucinations adalimumab [From Humira] Allergy (Verified 11/24/16 10:56) Past Medical History - General Information source: Patient - Social History Smoking Status: Current Every Day Smoker Cigarette use (# per day): Yes - Half pack per day Smoking Education Provided: Yes - 4 minutes Frequency of alcohol use: None Drug Abuse: None Occupation: [employer], 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 denies: COPD , CVA, Malignancy, Thyroid Disfunction Patient has suicidal ideation: No Patient has homicidal ideation: No - Past Medical History Cardiac Medical History: Reports: Hx Congestive Heart Failure, Hx Hypercholesterolemia, Hx Hypertension Pulmonary Medical History: Reports: Hx Asthma EENT Medical History: Reports: None Neurological Medical History: Reports: None Endocrine Medical History: Reports: Hx Diabetes Mellitus Type 2 Renal/ Medical History: Reports: Hx Kidney Stones Malignancy Medical History: Reports: None GI Medical History: Reports: None Musculoskeltal Medical History: Reports None Skin Medical History: Reports None Psychiatric Medical History: Reports: Hx Depression Traumatic Medical History: Reports: None Infectious Medical History: Reports: None Past Surgical History: Reports: Hx Section - Immunizations Immunizations up to date: No Hx Diphtheria, Pertussis, Tetanus Vaccination: No Review of Systems - Review of Systems Notes: Constitutional: [PRESENT: as per HPI. ABSENT: chills, fever(s), headache(s), weight gain, weight loss] very obese female Eyes: [ABSENT: visual disturbances] Ears: [ABSENT: hearing changes] Cardiovascular: [ABSENT: chest pain, dyspnea on exertion, edema, orthropnea, palpitations] Respiratory: [ABSENT: cough, hemoptysis] Gastrointestinal: [ABSENT: abdominal pain, constipation, diarrhea, hematemesis, hematochezia, nausea, vomiting] Genitourinary: [ABSENT: dysuria, hematuria] Musculoskeletal: Left leg pain from the knee front of the knee all the way down to the foot 3 days denies injury Integumentary: [ABSENT: rash, wounds] Neurological: [ABSENT: abnormal gait, abnormal speech, confusion, dizziness, focal weakness, syncope] Psychiatric: [ABSENT: anxiety, depression, homicidal ideation, suicidal ideation ] Endocrine: [ABSENT: cold intolerance, heat intolerance, menstrual abnormalities , polydipsia, polyuria] Hematologic/Lymphatic: [ABSENT: easy bleeding, easy bruising, lymphadenopathy] Physical Exam - Vital signs Vitals: Temp Pulse Resp BP Pulse Ox 97.8 F 111 H 20 156/96 H 97 04/27/17 22:48 04/27/17 22:48 04/27/17 22:48 04/27/17 22:48 04/27/17 22:48 - Notes Notes: PHYSICAL EXAMINATION: GENERAL: Morbidly obese female well-appearing complaining of pain to left knee and leg HEAD: Atraumatic, normocephalic. EYES: Pupils equal round and reactive to light, extraocular movements intact, conjunctiva are normal. ENT: Nares patent, oropharynx clear without exudates. Moist mucous membranes. NECK: Normal range of motion, supple without lymphadenopathy LUNGS: Breath sounds clear to auscultation bilaterally and equal. No wheezes rales or rhonchi. HEART: Regular rate and rhythm without murmurs ABDOMEN: Soft, nontender, nondistended abdomen. No guarding, no rebound. No masses appreciated. Female : deferred Musculoskeletal: Left knee, leg, and ankle pain. No swelling, laxity, or joint effusion. Patient has pain with range of motion. Patella tendon is intact. Left calf 53 and right calf 52. No pitting pedal edema noted NEUROLOGICAL: Cranial nerves grossly intact. Normal speech, normal gait. Normal sensory, motor exams PSYCH: Normal mood, normal affect. SKIN: Warm, Dry, normal turgor, no rashes or lesions noted. Course - Re-evaluation Re-evalutation: 04/28/17 07:19 Patient was seen today for pain to the left knee radiating down the left leg to include the ankle and foot. Labs were done by Josey fernandes. An x-ray was not ordered but was ordered by me when I picked up the chart. The x-ray does show mild arthritis in 3 compartments of the knee. She also is a very obese female who smokes which puts her at some risk for a DVT. Consulted Dr. Jara for exam and history of this pain in her knee and leg. Dr. Jara recommended that I ordered the venous Doppler of the left lower extremity. Doppler was ordered. Patient was treated with ibuprofen for her left knee pain. Report was given to Eleuterio REDMOND. 04/28/17 09:29 Doppler was negative patient was discharged home. Patient was verbalized understanding of instructions. Patient verbalized understanding she needs to follow-up with her primary doctor to get a referral to orthopedics as she has Medicaid. - Vital Signs Vital signs: Temp Pulse Resp BP Pulse Ox 97.8 F 111 H 20 156/96 H 97 04/27/17 22:48 04/27/17 22:48 04/27/17 22:48 04/27/17 22:48 04/27/17 22:48 - Laboratory Result Diagrams: 04/28/17 00:35 04/28/17 00:35 Laboratory results interpreted by me: 04/28/17 04/28/17 00:35 00:35 WBC 16.3 H RBC 5.30 H MCV 78 L MCH 25.8 L RDW 15.3 H Plt Count 529 H Absolute Neutrophils 10.6 H Glucose 176 H - Diagnostic Test Radiology reviewed: Image reviewed, Reports reviewed Discharge - Discharge Clinical Impression: Pain in left lower leg Left knee pain Qualifiers: Chronicity: acute Qualified Code(s): M25.562 - Pain in left knee Additional Instructions: You were seen today for left knee pain radiating down your leg to your foot for the last 3 days. You deny any injuries. There is no swelling noted to your left knee. Your x-ray shows arthritis to your left knee. Arthritis Your symptoms are due to arthritis. Arthritis is an inflammation of the joints. There are many types -- osteoarthritis (due to "wear and tear"), auto- immmune arthritis (such as rheumatoid, lupus, Tiffany's, and others), and crystal -induced arthritis (such as gout and pseudogout). The physician's examination, combined with laboratory tests, will determine the cause of your arthritis. All types of arthritis are treated with antiinflammatory medications. Other medication may be required for special types of arthritis, or if your problem does not respond to the antiinflammatory medicine. Local warmth may be helpful. Move the involved joints through the full range of motion daily. Mild exercise is usually still possible for most persons with arthritis (ask your physician). Swimming provides good exercise without damaging the joints. Contact the physician if you are worsening in any way. Knee Exercise Program It's important to strengthen the muscles around the knee. This protects the injured area and stabilizes a knee that's been loosened by ligament injury. EARLY - Even when motion of the knee is painful (even when wearing a splint ), you can begin isometric "quads" exercises. While sitting, hold the knee out, and contract the muscles to stiffen it. It shouldn't be straightened all the way -- stiffen it in a slightly-bent position. Lift the leg and draw a "T" with your foot, up to 100 times. When it becomes easy, add a weight on your foot. LATE - When the doctor advises you, you can begin moving the knee against resistance. The front muscles (quadriceps) are most important. While sitting at a [employer], straighten the knee forcefully while pushing a weight up with your ankle. Start with five to 10 pounds. Do 10 to 20 repetitions, increasing the weight as tolerated. Don't use more weight than is comfortable! Over a few weeks, work up to 35 to 50 pounds. Athletes should try to reach 70 to 90 pounds. Ibuprofen Ibuprofen is an excellent, safe drug for pain control. In addition, it has potent antiinflammatory effects which are beneficial, especially in the treatment of injuries, arthritis, or tendonitis. It's best to take ibuprofen with food. Persons with ulcer disease or allergy to aspirin should notify their physician of this before taking ibuprofen. Take the medication exactly as prescribed. Don't take additional doses unless instructed to do so by your doctor. If you develop wheezing, shortness of breath, hives, faintness, stomach pain, vomiting, or dark black stools, return for re-evaluation at once. FOLLOW-UP CARE: If you have been referred to a physician for follow-up care, call the physician s office for an appointment as you were instructed or within the next two days. If you experience worsening or a significant change in your symptoms, notify the physician immediately or return to the Emergency Department at any time for re-evaluation. Forms: Elevated Blood Pressure, Smoking Cessation Education, Return to Work Referrals: ELEUTERIO ARAUJO PA-C [Primary Care Provider] - Follow up as needed
[2017-04-28] MEDS ORDERED: IBUPROFEN 800 MG TABLET PO ONE (06:48)
[2017-04-28 09:36] VITALS: BP 146/79
--- NOTE | 2017-04-28 09:36 | RADIOLOGY REPORT (SQ) ---
EXAM DESCRIPTION: VENOUS UNILATERAL LOWER COMPLETED DATE/TIME: 04/28/2017 9:24 am REASON FOR STUDY: Left lower extremity pain for the last 3 days, mor COMPARISON: None. TECHNIQUE: Dynamic and static espitia scale and color images acquired of both lower extremity venous sy stems. Selected spectral images acquired with additional compression and augmentation maneuvers. Imag es stored on PACS. LIMITATIONS: None. FINDINGS: RIGHT LEG COMMON FEMORAL AND FEMORAL: Normal phasicity, compression and augmentation. No visualized echogenic m aterial on espitia scale. No defects on color images. POPLITEAL: Normal compression and augmentation. No visualized echogenic material on espitia scale. No de fects on color images. CALF VESSELS: Normal compression and augmentation. No visualized echogenic material on espitia scale. No defects on color image. GSV AND SSV: Normal compression. No visualized echogenic material on espitia scale. No defects on color images. ANY DEEP VENOUS INSUFFICIENCY: Not evaluated. ANY EVIDENCE OF POPLITEAL CYST: No. OTHER: No other significant finding. LEFT LEG COMMON FEMORAL AND FEMORAL: Normal phasicity, compression and augmentation. No visualized echogenic m aterial on espitia scale. No defects on color images. POPLITEAL: Normal compression and augmentation. No visualized echogenic material on espitia scale. No de fects on color images. CALF VESSELS: Normal compression and augmentation. No visualized echogenic material on espitia scale. No defects on color images. GSV AND SSV: Normal compression. No visualized echogenic material on espitia scale. No defects on color images. ANY DEEP VENOUS INSUFFICIENCY: Not evaluated. ANY EVIDENCE POPLITEAL CYST: No. OTHER: No other significant finding. IMPRESSION: NO EVIDENCE DVT OR SVT IN EITHER LEG. Small joint effusion left knee. TECHNICAL DOCUMENTATION: JOB ID: [id number] [employer]- All Rights Reserved
== END 2017-04-28 09:25 | disposition home or self-care (01) ==
LOC: ER 22:35
DX: M17.12 Unilateral primary osteoarthritis, left knee (principal); M25.562 Pain in left knee; M79.662 Pain in left lower leg; M79.672 Pain in left foot; M25.572 Pain in left ankle and joints of left foot; E66.01 Morbid (severe) obesity due to excess calories; Z68.42 Body mass index [BMI] 45.0-49.9, adult; E11.9 Type 2 diabetes mellitus without complications; I10 Essential (primary) hypertension; J45.909 Unspecified asthma, uncomplicated; F17.210 Nicotine dependence, cigarettes, uncomplicated; Z71.6 Tobacco abuse counseling; Z88.8 Allergy status to other drugs, medicaments and biological substances; Z88.5 Allergy status to narcotic agent
CPT/HCPCS: 99406; 99284; 36415; 84703; 85025; 85610; 85730; 80053; 93971; 73562; J3490

== ENCOUNTER 2017-06-06 18:41 | Emergency (ER) | payer OTHER, MEDICAID ==
[2017-06-06] MEDS ORDERED: ACETAMINOPHEN 325 MG TABLET PO ONE (19:18)
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
--- NOTE | 2017-06-06 20:06 | RADIOLOGY REPORT (SQ) ---
EXAM DESCRIPTION: ELBOW LEFT AP/LATERAL COMPLETED DATE/TIME: 06/06/2017 7:39 pm REASON FOR STUDY: Trauma COMPARISON: None. NUMBER OF VIEWS: Four views. TECHNIQUE: AP, lateral, and both oblique radiographic images acquired of the left elbow. LIMITATIONS: None. FINDINGS: MINERALIZATION: Normal. BONES: No acute fracture or dislocation. No worrisome bone lesions. JOINT: No effusion. SOFT TISSUES: No soft tissue swelling. No foreign body. OTHER: No other significant finding. IMPRESSION: NEGATIVE STUDY OF THE LEFT ELBOW. NO RADIOGRAPHIC EVIDENCE OF ACUTE INJURY. TECHNICAL DOCUMENTATION: JOB ID: [id number] [employer]- All Rights Reserved Reading location - IP/workstation name: [email or web address]
[2017-06-06 20:09] VITALS: BP 176/83
== END 2017-06-06 20:09 | disposition home or self-care (01) ==
LOC: ER 18:41
DX: S53.401A Unspecified sprain of right elbow, initial encounter (principal); S39.012A Strain of muscle, fascia and tendon of lower back, initial encounter; V49.60XA Unspecified car occupant injured in collision with unspecified motor vehicles in traffic accident, initial encounter; I10 Essential (primary) hypertension; J45.909 Unspecified asthma, uncomplicated; E11.9 Type 2 diabetes mellitus without complications; Z88.8 Allergy status to other drugs, medicaments and biological substances; Z88.5 Allergy status to narcotic agent
CPT/HCPCS: 99284

== ENCOUNTER 2018-05-03 02:46 | Emergency (ER) | payer MEDICAID, OTHER ==
[2018-05-03] MEDS ORDERED: ONDANSETRON 4 MG TAB.RAPDIS PO ONE (03:55)
[2018-05-03] MEDS ORDERED: OXYCODONE-ACETAMINOPHEN 5-325 MG TABLET PO ONE (03:55)
[2018-05-03] MEDS ORDERED: KETOROLAC TROMETHAMINE 60 MG/2 ML SDV IM ONE (03:55)
--- NOTE | 2018-05-03 03:59 | ER Document Report ---
HPI - HPI Patient complains to provider of: lower back pain Time Seen by Provider: 05/03/18 03:39 Pain Level: 5 Context: Patient is a 37-year-old female that comes to the emergency department for chief complaint of lower back pain. 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 She had some tingling sensation in her right leg but denies numbness or weakness, denies tingling sensation now. She reports persistent sharp pain in her right lower back. She denies incontinence, fever. She has a history of herniated disks in her neck but not in her lower back. Past medical history includes insulin- dependent diabetes, hypertension, and obesity. - REPRODUCTIVE Reproductive: DENIES: : Past Medical History - General Information source: Patient - Social History Smoking Status: Never Smoker Frequency of alcohol use: None Drug Abuse: None Lives with: Family Family History: Arthritis, CAD, DM, Hyperlipidemia, Hypertension. denies: COPD, CVA, Malignancy, Thyroid Disfunction - Past Medical History Cardiac Medical History: Reports: Hx Hypercholesterolemia, Hx Hypertension Pulmonary Medical History: Reports: Hx Asthma Endocrine Medical History: Reports: Hx Diabetes Mellitus Type 2 Renal/ Medical History: Reports: Hx Kidney Stones. Denies: Hx Peritoneal Dialysis Psychiatric Medical History: Reports: Hx Depression Past Surgical History: Reports: Hx Section - Immunizations Immunizations up to date: No Hx Diphtheria, Pertussis, Tetanus Vaccination: No Vertical Provider Document - CONSTITUTIONAL General Appearance: WD/WN, Mild Distress - Patient uncomfortable, sitting awkwardly, Obese - INFECTION CONTROL TRAVEL OUTSIDE OF THE [place] IN LAST 30 DAYS: No - HEENT HEENT: Atraumatic, Normocephalic - NECK Neck: Normal Inspection - RESPIRATORY Respiratory: Breath Sounds Normal, No Respiratory Distress - CARDIOVASCULAR Cardiovascular: Regular Rate, Regular Rhythm, Tachycardia - Borderline - GI/ABDOMEN Gastrointestinal: Abdomen Soft, Abdomen Non-Tender - BACK Back: negative: Normal Inspection - Tender in the right paraspinal musculature with spasm. No midline tenderness, no saddle anesthesia, no signs of trauma. Normal upper and lower extremity range of motion, normal strength, normal distal neurovascular exam. Positive right-sided straight leg raise. Positive axial loading. - MUSCULOSKELETAL/EXTREMETIES Musculoskeletal/Extremeties: MAEW, FROM, Non-Tender - NEURO Level of Consciousness: Awake, Alert, Appropriate Motor/Sensory: No Motor Deficit, No Sensory Deficit - DERM Integumentary: Warm, Dry, No Rash Course - Re-evaluation Re-evalutation: Patient initially very uncomfortable with tachycardia and hypertension, she was medicated, vital signs normalized. Patient is uncomfortable, she has tenderness over the right paralumbar musculature, positive straight leg raise on the right only, positive axial loading test. Based on her exam and description I suspect she has a herniated disc in the lumbar area. I do not suspect spinal cord compression based on her lack of neurological deficits and reported history, I do not suspect epidural abscess, aortic dissection, or other emergent etiology based on her reported symptoms and on her exam. Discussed treatment options, follow-up, and return precautions in detail with patient. Patient states understanding and agreement. Stable at time of discharge. - Vital Signs Vital signs: Temp Pulse Resp BP Pulse Ox 98.4 F 120 H 20 181/104 H 95 05/03/18 02:52 05/03/18 02:52 05/03/18 02:52 05/03/18 02:52 05/03/18 02:52 Discharge - Discharge Clinical Impression: Lower back pain Qualifiers: Chronicity: acute Back pain laterality: right Sciatica presence: with sciatica Sciatica laterality: sciatica of right side Qualified Code(s): M54.41 - Lumbago with sciatica, right side Condition: Stable Disposition: HOME, SELF-CARE Additional Instructions: Your exam is most consistent with a herniated disc. This takes time to improve. Take muscle relaxer as prescribed with the precautions, take anti-inflammatory as prescribed but stay very hydrated because this can irritate your kidneys. You can apply heat to the area. Avoid lifting/twisting. Follow-up with primary care for additional evaluation and management. Return if you worsen including numbness, inability to urinate, inability to control your bowels, fever, or any other concerning symptoms. Prescriptions: Diazepam [Valium 5 mg Tablet] 1 - 2 tab PO TID PRN #15 tablet PRN Reason: Naproxen 500 mg PO BID PRN #14 tablet PRN Reason: Forms: Return to Work Referrals: ELEUTERIO ARAUJO PA-C [NO LOCAL MD] - Follow up as needed
[2018-05-03 04:51] VITALS: BP 142/84
== END 2018-05-03 04:52 | disposition home or self-care (01) ==
LOC: ER 02:46
DX: M54.41 Lumbago with sciatica, right side (principal); M62.830 Muscle spasm of back; E66.9 Obesity, unspecified; I10 Essential (primary) hypertension; J45.909 Unspecified asthma, uncomplicated; E11.9 Type 2 diabetes mellitus without complications; Z79.4 Long term (current) use of insulin; R00.0 Tachycardia, unspecified
CPT/HCPCS: 99283; 96372; J1885; S0119

== ENCOUNTER → 2018-05-24 | Outpatient (CLI) | payer MEDICAID ==
--- NOTE | 2018-05-24 10:20 | RADIOLOGY REPORT (SQ) ---
EXAM DESCRIPTION: LUMBAR SPINE COMPLETE COMPLETED DATE/TIME: 05/24/2018 9:40 am REASON FOR STUDY: CHRONIC MIDLINE LOW BACK PAIN WITHOUT SCIATICA M54.5 LOW BACK PAIN COMPARISON: None. NUMBER OF VIEWS: Five views including obliques. TECHNIQUE: AP, lateral, oblique, and sacral radiographic images acquired of the lumbar spine. LIMITATIONS: None. FINDINGS: MINERALIZATION: Normal. SEGMENTATION: Normal. No transitional anatomy. ALIGNMENT: Minimal levoconvex curvature of the lumbar spine. VERTEBRAE: Preserved height. No fracture or worrisome bone lesion. DISCS: Likely mild height loss at L4-5 and L5-S1. No significant osteophytes or end plate irregulari ty. POSTERIOR ELEMENTS: Pedicles and facets are intact. No pars defect or posterior arch defects. HARDWARE: None in the spine. PARASPINAL SOFT TISSUES: Normal. PELVIS: Intact as visualized. No fractures or worrisome bone lesions. SI joints intact. OTHER: None vascular calcifications noted IMPRESSION: No evidence of acute abnormality to the lumbar spine. Mild levoconvex curvature of the lumbar spine with likely mild height loss at L4-5 and L5-S1. TECHNICAL DOCUMENTATION: JOB ID: [id number]- All Rights Reserved Reading location - IP/workstation name: [email or web address]
== END ==
LOC: OD 09:21
PROVIDERS: ATTEND Nurse Practitioner Family
DX: M54.5 Low back pain (principal)
CPT/HCPCS: 72110

== ENCOUNTER 2018-11-12 07:32 | Emergency (ER) | payer MEDICAID ==
--- NOTE | 2018-11-12 09:18 | ER Document Report ---
HPI - HPI Patient complains to provider of: right hand palm Time Seen by Provider: 11/12/18 08:56 Onset: Last week Onset/Duration: Sudden, Persistent Severity: Severe Pain Level: 4 Context: This 38-year-old female presents emergency department with complaints of pain to the right palm. Patient reports approximate 1 week ago she had a blister on her right palm and she popped it. She reports she gets a lot of blisters on her hands. She noticed it started turning red increased pain yesterday. Denies fever vomiting diarrhea. Patient is a diabetic. Associated Symptoms: None Exacerbated by: Denies Relieved by: Denies Similar symptoms previously: No Recently seen / treated by doctor: No - CONSTITUTIONAL Constitutional: DENIES: Fever, Chills - REPRODUCTIVE Reproductive: DENIES: : Past Medical History - General Information source: Patient - Social History Smoking Status: Never Smoker Chew tobacco use (# tins/day): No Frequency of alcohol use: None Drug Abuse: None Occupation: [employer] Family History: Arthritis, CAD, DM, Hyperlipidemia, Hypertension. denies: COPD, CVA, Malignancy, Thyroid Disfunction Patient has suicidal ideation: No Patient has homicidal ideation: No - Past Medical History Cardiac Medical History: Reports: Hx Congestive Heart Failure, Hx Hypercholesterolemia, Hx Hypertension Pulmonary Medical History: Reports: Hx Asthma Endocrine Medical History: Reports: Hx Diabetes Mellitus Type 2 Renal/ Medical History: Reports: Hx Kidney Stones. Denies: Hx Peritoneal Dialysis Psychiatric Medical History: Reports: Hx Depression Past Surgical History: Reports: Hx Section - Immunizations Immunizations up to date: No Hx Diphtheria, Pertussis, Tetanus Vaccination: No Vertical Provider Document - CONSTITUTIONAL Agree With Documented VS: Yes Exam Limitations: No Limitations General Appearance: WD/WN, No Apparent Distress - INFECTION CONTROL TRAVEL OUTSIDE OF THE [place] IN LAST 30 DAYS: No - HEENT HEENT: Atraumatic, Normocephalic - NECK Neck: Supple - RESPIRATORY Respiratory: No Respiratory Distress - MUSCULOSKELETAL/EXTREMETIES Musculoskeletal/Extremeties: MAEW, FROM, Tender - right hand palm, small sony oofed blister ~1 cm surrounded by slight erythema ~ 2 mm, no drainage no warmth, no streaks, good cap refill, good radial pulse, no swelling - NEURO Level of Consciousness: Awake, Alert, Appropriate Motor/Sensory: No Motor Deficit - DERM Integumentary: Warm, Dry Course - Re-evaluation Re-evalutation: 11/12/18 14:00 This 38-year-old female with history of diabetes presents emergency department with complaints of water blister that she popped approximately 1 week ago and now feels infected. Denies fever vomiting. The area is slightly erythema around it. Patient was instructed on Keflex. Instructed on signs and symptoms of worsening infection. She was instructed to return for worsening symptoms and definitely follow-up with her primary care provider this week. She verbalized understanding to all instructions. Dictation of this chart was performed using voice recognition software; therefore, there may be some unintended grammatical errors. - Vital Signs Vital signs: Temp Pulse Resp BP Pulse Ox 98 F 104 H 16 137/77 H 11/12/18 07:43 11/12/18 07:43 11/12/18 07:43 11/12/18 07:43 Discharge - Discharge Clinical Impression: right hand wound Cellulitis Qualifiers: Site of cellulitis: extremity Site of cellulitis of extremity: upper extremity Laterality: right Qualified Code(s): L03.113 - Cellulitis of right upper limb Condition: Stable Disposition: HOME, SELF-CARE Instructions: Cellulitis ([facility]), Cephalexin ([facility]) Additional Instructions: *You have been treated for a right hand palm wound, cellulitis *Take medication as prescribed *Monitor the site for signs of increasing infection such as increasing pain, redness, swelling, warmth *Keep the area clean *Follow up with a primary care provider as scheduled Tuesday *Return to ED for signs of increasing infection, worsening condition, changes, needs Prescriptions: Cephalexin Monohydrate [Keflex 500 mg Capsule] 500 mg PO QID #20 capsule Forms: Return to Work Referrals: IVETTE LOPEZ FNP-C [Primary Care Provider] - 11/17/18
[2018-11-12 09:36] VITALS: BP 147/97
== END 2018-11-12 09:36 | disposition home or self-care (01) ==
LOC: ER 07:32
DX: L03.113 Cellulitis of right upper limb (principal); M79.641 Pain in right hand; R23.8 Other skin changes; E11.9 Type 2 diabetes mellitus without complications; I50.9 Heart failure, unspecified; I11.0 Hypertensive heart disease with heart failure; J45.909 Unspecified asthma, uncomplicated
CPT/HCPCS: 99283

== ENCOUNTER → 2018-11-15 | Outpatient (CLI) | payer MEDICAID ==
--- NOTE | 2018-11-15 09:52 | RADIOLOGY REPORT (SQ) ---
EXAM DESCRIPTION: MRI LUMBAR SPINE WITHOUT COMPLETED DATE/TIME: 11/15/2018 8:44 am REASON FOR STUDY: LOW BACK PAIN M54.5 LOW BACK PAIN COMPARISON: None. TECHNIQUE: Sagittal and Axial imaging includes T1, T2, STIR and gradient echo sequences. Coronal T2/ HASTE imaging. LIMITATIONS: None. FINDINGS: VISUALIZED UPPER ABDOMEN: No acute findings. SEGMENTATION: There is no transition anatomy at the lumbosacral junction ALIGNMENT: Anatomic. VERTEBRAE: Intact. BONE MARROW: No marrow signal abnormality. DISC SIGNAL: The L4-L5 intervertebral disc space is narrowed and desiccated; in addition, there is a central disc protrusion at the L4-5 level with an annular tear. POSTERIOR ELEMENTS: Intact. There is no pars interarticularis defects. HARDWARE: None in the spine. CORD AND CONUS: The conus medullaris terminates at the level of T12-L1 and is normal in caliber and s ignal intensity. SOFT TISSUES: No aortic aneurysm or retroperitoneal adenopathy. L1-L2: No spinal or foraminal stenosis. L2-L3: No spinal or foraminal stenosis. L3-L4: No spinal or foraminal stenosis. L4-L5: There is a central disc protrusion with an annular tear that indents the ventral aspect of th e thecal sac without mass effect on the nerve roots, and there is increased T2 signal intensity withi n the facet joints indicating a component of degeneration. There is no spinal or foraminal stenosis at the L4-5 level. L5-S1: No spinal or foraminal stenosis. LOWER THORACIC: No stenosis. SACRUM: Intact. OTHER: No other findings. IMPRESSION: 1. Central disc protrusion with an annular tear at L4-5 that results in mild indentation of the thecal sac but no compression of the nerve roots. 2. Mild facet joint arthropathy at L4-L5 without spondylolisthesis. TECHNICAL DOCUMENTATION: JOB ID: [id number] [employer]- All Rights Reserved Reading location - IP/workstation name: [email or web address]
== END ==
LOC: RAD 08:02
PROVIDERS: ATTEND Nurse Practitioner Family
DX: M51.26 Other intervertebral disc displacement, lumbar region (principal)
CPT/HCPCS: 72148

== ENCOUNTER 2019-07-02 08:19 | Emergency (ER) | payer SELFPAY ==
--- NOTE | 2019-07-02 08:54 | ER Document Report ---
ED Extremity Problem, Lower - General Chief Complaint: Knee Pain Stated Complaint: LEFT LEG PAIN Time Seen by Provider: 07/02/19 08:32 Primary Care Provider: IVETTE LOPEZ FNP-C [Primary Care Provider] - Follow up as needed Notes: HPI: 39-year-old female with past medical history as recorded who presents today stating around 1 week ago she was getting up from a seated position and felt a "pop" in her left knee. She has had some progressive pain and swelling to the left knee and calf. She denies any chest pain, fevers, shortness of breath, weakness or numbness to the leg. She denies any discoloration of the foot. ROS: See HPI All other review of systems reviewed and otherwise negative Reviewed vital signs and nursing note as charted by RN. PHYSICAL EXAM: CONSTITUTIONAL: Alert and oriented and responds appropriately to questions. Well-appearing; well-nourished HEAD: Normocephalic; atraumatic NECK: Supple without meningismus; non-tender; no cervical lymphadenopathy, no masses CARD: Slightly tachycardic at 101; no murmurs; symmetric distal pulses RESP: Normal chest excursion without splinting or tachypnea; breath sounds clear and equal bilaterally; no wheezes, no rhonchi, no rales ABD/GI: Normal bowel sounds; non-distended; soft, non-tender BACK: The back appears normal and is non-tender to palpation EXT: Patient has some mild tenderness to the left knee extending into the calf. 1+ pitting edema to the anterior left abebe. Strong distal pulses, capillary refill, and normal warmth and color to the foot. No obvious ligamentous laxity SKIN: No acute lesions noted NEURO: CN 2-12 intact; 5/5 bilateral upper and lower extremity strength with excellent plantar flexion extension of the foot, with sensation intact to light touch PSYCH: The patient's mood and manner are appropriate. Grooming and personal hygiene are appropriate. TRAVEL OUTSIDE OF THE [place] IN LAST 30 DAYS: No - Related Data Allergies/Adverse Reactions: lisinopril [Lisinopril] Allergy (Severe, Verified 07/02/19 08:36) Swelling of Throat hydrocodone bitartrate [From Vicodin] Allergy (Intermediate, Verified 07/02/19 08:36) Hallucinations adalimumab [From Humira] Allergy (Verified 07/02/19 08:36) Past Medical History - Social History Smoking Status: Current Every Day Smoker Chew tobacco use (# tins/day): No Frequency of alcohol use: Rare Drug Abuse: None Family History: Arthritis, CAD, DM, Hyperlipidemia, Hypertension Patient has suicidal ideation: No Patient has homicidal ideation: No - Past Medical History Cardiac Medical History: Reports: Hx Congestive Heart Failure, Hx Hypercholesterolemia, Hx Hypertension Pulmonary Medical History: Reports: Hx Asthma Endocrine Medical History: Reports: Hx Diabetes Mellitus Type 2 Renal/ Medical History: Reports: Hx Kidney Stones. Denies: Hx Peritoneal Dialysis Psychiatric Medical History: Reports: Hx Depression Past Surgical History: Reports: Hx Section - Immunizations Immunizations up to date: No Hx Diphtheria, Pertussis, Tetanus Vaccination: No Physical Exam - Vital signs Vitals: Temp Pulse Resp BP Pulse Ox 98.7 F 115 H 20 155/91 H 98 07/02/19 08:23 07/02/19 08:23 07/02/19 08:23 07/02/19 08:23 07/02/19 08:23 Course - Re-evaluation Re-evalutation: 07/02/19 08:53 Given the above history and physical with initial tachycardia, despite chest pain or shortness of breath, I will order an x-ray of the left knee to evaluate for fracture as well as a Doppler ultrasound to evaluate for con commitment and/your primary DVT. If both of these are unremarkable I will most likely discharge the patient home with a knee immobilizer and crutches with orthopedic follow-up. 07/02/19 09:31 X-ray of the knee shows no obvious fractures. 07/02/19 11:39 Doppler ultrasound shows no obvious DVT. No change in exam. We will place the patient in a knee immobilizer with strict return precautions and follow-up with orthopedics. - Vital Signs Vital signs: Temp Pulse Resp BP Pulse Ox 98.7 F 115 H 20 155/91 H 98 07/02/19 08:36 07/02/19 08:23 07/02/19 08:23 07/02/19 08:23 07/02/19 08:23 Discharge - Discharge Clinical Impression: Left knee pain Qualifiers: Chronicity: acute Qualified Code(s): M25.562 - Pain in left knee Condition: Good Disposition: HOME, SELF-CARE Additional Instructions: Come back immediately with any increased pain, swelling of the leg, chest pain or shortness of breath, or any other acute problems. Please make sure that you take off the knee immobilizer frequently throughout the day with range of motion exercises as we have discussed. Please make sure that you follow-up with orthopedics. Referrals: IVETTE LOPEZ FNP-C [Primary Care Provider] - Follow up as needed CHANDNI FONTANA DO [ACTIVE STAFF] - Follow up as needed
--- NOTE | 2019-07-02 09:44 | RADIOLOGY REPORT (SQ) ---
EXAM DESCRIPTION: KNEE LEFT 4 VIEW IMAGES COMPLETED DATE/TIME: 07/02/2019 9:13 am REASON FOR STUDY: 15; Pain COMPARISON: None. NUMBER OF VIEWS: Four views. TECHNIQUE: AP, lateral, and both oblique radiographic images acquired of the left knee. LIMITATIONS: None. FINDINGS: MINERALIZATION: Normal. BONES: No acute fracture or dislocation. JOINT: Mild tricompartmental osteoarthrosis. SOFT TISSUES: No soft tissue swelling or radiopaque foreign body. OTHER: The quadriceps and patellar tendon silhouettes are intact. IMPRESSION: No acute osseous abnormality of the left knee. TECHNICAL DOCUMENTATION: JOB ID: [id number] [employer]- All Rights Reserved Reading location - IP/workstation name: [email or web address]
[2019-07-02 12:09] VITALS: BP 142/88
--- NOTE | 2019-07-02 12:17 | RADIOLOGY REPORT (SQ) ---
EXAM DESCRIPTION: VENOUS UNILATERAL LOWER IMAGES COMPLETED DATE/TIME: 07/02/2019 11:47 am REASON FOR STUDY: 15; LLE PAIN AND SWELLING. COMPARISON: None. TECHNIQUE: Dynamic and static espitia scale and color images acquired of the left leg venous system. Se lected spectral images acquired with additional compression and augmentation maneuvers. The contralat eral common femoral vein and saphenofemoral junction were also imaged. Images stored on PACS. LIMITATIONS: None. FINDINGS: COMMON FEMORAL: Normal phasicity, compression and augmentation. No visualized echogenic ma terial on espitia scale. No defects on color images. FEMORAL: Normal compression and augmentation. No visualized echogenic material on espitia scale. No defe cts on color images. POPLITEAL: Normal compression, augmentation. No visualized echogenic material on espitia scale. No defec ts on color images. CALF VESSELS: Normal compression, augmentation. No visualized echogenic material on espitia scale. No de fects on color images. GSV and SSV: Normal compression, augmentation. No visualized echogenic material on espitia scale. No def ects on color images. ANY DEEP VENOUS INSUFFICIENCY: No. ANY EVIDENCE OF POPLITEAL CYST: No. OTHER: No other finding. CONTRALATERAL COMMON FEMORAL VEIN AND SAPHENOFEMORAL JUNCTION: Normal phasicity, compression and augmentation. No visualized echogenic material on espitia scale. No de fects on color images. IMPRESSION: NO EVIDENCE OF DVT OR SVT IN THE LEFT LEG. TECHNICAL DOCUMENTATION: JOB ID: [id number] 2010 [employer]- All Rights Reserved Reading location - IP/workstation name: [email or web address]
== END 2019-07-02 12:09 | disposition home or self-care (01) ==
LOC: ER 08:19
DX: M25.562 Pain in left knee (principal); R60.0 Localized edema; R00.0 Tachycardia, unspecified; I10 Essential (primary) hypertension; E11.9 Type 2 diabetes mellitus without complications; J45.909 Unspecified asthma, uncomplicated; Z88.8 Allergy status to other drugs, medicaments and biological substances; Z88.6 Allergy status to analgesic agent; Z88.5 Allergy status to narcotic agent; F17.200 Nicotine dependence, unspecified, uncomplicated
CPT/HCPCS: 93971; 99284

== ENCOUNTER 2019-09-07 07:34 | Emergency (ER) | payer SELFPAY ==
[2019-09-07] MEDS ORDERED: OXYCODONE-ACETAMINOPHEN 5-325 MG TABLET PO ONE ×2 (08:40→14:01)
--- NOTE | 2019-09-07 08:50 | ER Document Report ---
ED General - General Chief Complaint: Abscess Stated Complaint: ABSCESS Time Seen by Provider: 09/07/19 08:25 Notes: 39-year-old female with past medical history of diabetes, hypertension and hyperlipidemia and peripheral neuropathy presenting today with abscess on her buttocks. States that it developed 2 to 3 days ago. States is drained sl ightly. States that she gets a history of abscesses. This is the second time she has had one on her buttocks. States the last one on her buttocks was 7 years ago. States this was removed in the OR in [place]. States that she did take her blood pressure medication this morning. States she takes HCTZ and amlodipine. She denies any additional symptoms to include fever, chills, shortness of breath, chest pain. TRAVEL OUTSIDE OF THE [place] IN LAST 30 DAYS: No - Related Data Allergies/Adverse Reactions: lisinopril [Lisinopril] Allergy (Severe, Verified 09/08/19 17:04) Swelling of Throat hydrocodone bitartrate [From Vicodin] Allergy (Intermediate, Verified 09/08/19 17:04) Hallucinations adalimumab [From Humira] Allergy (Verified 09/08/19 17:04) Past Medical History - Social History Smoking Status: Current Every Day Smoker Chew tobacco use (# tins/day): No Frequency of alcohol use: Rare Drug Abuse: Marijuana Family History: Arthritis, CAD, DM, Hyperlipidemia, Hypertension Patient has homicidal ideation: No - Past Medical History Cardiac Medical History: Reports: Hx Congestive Heart Failure, Hx Hypercholesterolemia, Hx Hypertension Pulmonary Medical History: Reports: Hx Asthma Endocrine Medical History: Reports: Hx Diabetes Mellitus Type 2 Renal/ Medical History: Reports: Hx Kidney Stones. Denies: Hx Peritoneal Dialysis Psychiatric Medical History: Reports: Hx Depression Past Surgical History: Reports: Hx Section - Immunizations Immunizations up to date: No Hx Diphtheria, Pertussis, Tetanus Vaccination: No Review of Systems - Review of Systems Constitutional: No symptoms reported EENT: No symptoms reported Cardiovascular: No symptoms reported Respiratory: No symptoms reported Gastrointestinal: No symptoms reported Genitourinary: No symptoms reported Female Genitourinary: No symptoms reported Skin: See HPI Physical Exam - Vital signs Vitals: Temp Pulse Resp BP Pulse Ox 99.7 F 130 H 20 219/106 H 97 09/07/19 07:38 09/07/19 07:38 09/07/19 07:38 09/07/19 07:38 09/07/19 07:38 Interpretation: Hypertensive, Tachycardic - Notes Notes: Adult General: GENERAL: Alert, interacts well. No acute distress HEAD: Normocephalic, atraumatic EYES: Extraocular movements intact. ENT: Airway patent. Nares patent, sinuses nontender, ear canals unremarkable, TMs intact. No Trismu NECK: Trachea midline. No lymphadenopathy. LUNGS: Clear to auscultation bilaterally, no wheezes, rales, or rhonchi. No respiratory distress. Nontender chest wall. HEART: Regular rate and rhythm. No murmurs, rubs or gallops. ABDOMEN: Soft, nontender. Nondistended. GENITOURINARY: Deferred EXTREMITIES: Moves all 4 extremities spontaneously. BACK: Moves all extremities with full range of motion. NEUROLOGICAL: Alert and oriented x3. Normal speech. Strength 5/ 5 in all extremities. PSYCH: Normal affect, normal mood. SKIN: 3 cm tender, fluctulant erythematous mass at gluteal cleft Course - Re-evaluation Re-evalutation: 09/07/19 10:36 Patient has an infected pilonidal cyst. This was drained. Patient tolerated procedure. Patient instructed to follow-up with her primary care tomorrow for wound care. She is to keep the area clean and dry. Also recommend she follow- up with a surgeon for further evaluation as this is the second time she has had this occur. Will prescribe her antibiotics and pain medicine. I discussed with her return precautions to include signs of infection and worsening symptoms and development of new symptoms. Patient acknowledges and verbalizes understanding of instructions and plan. 09/07/19 12:46 Patient continues to deny any cardiac history besides hypertension. States she continues to have no chest pain or shortness of breath. Her EKG showed sinus tachycardia. On review of her previous vitals she does run tachycardic. There is no change in her EKG from prior. We will go ahead and run a troponin. Patient's white count came back at 21.8 with a left shift. Patient does report improvement in pain since incision and drainage. I discussed with the patient the importance of receiving IV antibiotics as we concerned that she has sepsis due to a source of infection, tachycardia and elevated white count with a left shift. Discussed that patient may need to be admitted to the hospital for further evaluation. Patient reports that she will not stay at the hospital to be admitted but she is agreeable to receiving IV antibiotics. Discussed with Dr. Wong who recommends lactate and start antibiotics. And if lactate is normal she can be discharged. Antibiotics and fluid ordered. I also discussed case with Dr. Moralez. He recommends a CT scan of the abdomen and pelvis for further evaluation of the pilonidal cyst and to notify him if there are any abnormal findings. 09/07/19 17:25 Was notified that the urine test was sent. Still pending CT imaging at this time. Lactic is 1.7. Her temperature is currently 99.1 and her pulse is 126. 09/07/19 17:38 His test is come back negative. I called CT to see about getting the CT scan completed. They stated they will advise the tech. 09/07/19 19:35 I was contacted by the pharmacy and was informed that they cannot fill the norco as prescribed. I discontinued her narcotics and will order toradol instead. CT shows signs of the incision and drainage but no further tracking. 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 I discussed the CT findings with Dr. loredo and Dr. Ya who agree that a porcelain gallbladder is not a surgical emergency and suspect that the gas noted on the CT is related to the recent procedure. As there is no diffuse gas we are comfortable sending the patient home. Patient a lso refuses any additional medical treatment at this time. States she would not be admitted to the hospital. Recommend patient follow-up tomorrow for wound repacking. Asked for different medication as she is unable to afford the clindamycin. I provided pricing for the clindamycin via [facility] [employer]. Patient states she can afford the medication now. Patient does remain tachycardic. I discussed emergent return precautions to the emergency department to include worsening pain, fever, or development of new symptoms or current symptoms worsening. Patient acknowledges and verbalizes understanding of instructions and plan. All questions answered. Cipro was also ordered and sent to the patients pharmacy. - Vital Signs Vital signs: Temp Pulse Resp BP Pulse Ox 99.5 F 117 H 16 134/89 H 100 09/07/19 20:46 09/07/19 20:46 09/07/19 20:46 09/07/19 20:46 09/07/19 20:46 - Laboratory Result Diagrams: 09/07/19 11:02 09/07/19 11:02 Laboratory results interpreted by me: 09/07/19 09/07/19 11:02 11:02 WBC 21.8 H MCH 26.7 L RDW 14.7 H Plt Count 465 H Band Neutrophils % 1 L Abs Neuts (Manual) 16.6 H Abs Monocytes (Manual) 1.7 H Sodium 132.8 L Chloride 97 L Creatinine 0.51 L Glucose 231 H Procedures - Incision and Drainage Buttock Anesthetic type: 1% Lidocaine w/epi Incision Method: Incision made by scalpel Notes: 09/07/19 10:35 Area was cleaned with iodine. Area was anesthetized for lidocaine with epi. Incision was made. Area was draining. Area was probed for loculations. Area was packed with iodoform gauze. Covered with gauze and Tegaderm. Patient tolerated procedure. Discharge - Discharge Clinical Impression: Pilonidal cyst with abscess Condition: Stable Disposition: AGAINST MEDICAL ADVICE Instructions: Abscess ([facility]), Post Incision and Drainage Additional Instructions: I still have concerns that there may be an infection in your blood stream as you have a fast heart rate and your white count is elevated. Please follow-up with your primary care provider tomorrow or the ER for a wound check. You will need to be referred to a surgeon at this is a second time that this has occurred. Pl ease return to the emergency department if you have worsening symptoms or development of new symptoms. Please return if you have signs of infection. Prescriptions: Ketorolac Tromethamine [Toradol 10 mg Tablet] 10 mg PO Q6HP PRN 5 Days #20 tablet PRN Reason: Ciprofloxacin HCl [Cipro 500 mg Tablet] 500 mg PO BID #14 tablet Clindamycin HCl 450 mg PO TID #21 capsule
[2019-09-07] MEDS ORDERED: LIDOCAINE 1%/EPINEPHRINE INJ 20 ML VIAL INJ ONE (08:52)
[2019-09-07 11:14] LABS: HEMATOCRIT 40.7 % (36.0-47.0); HEMOGLOBIN 13.7 g/dL (12.0-15.5); MEAN CORPUSCULAR HEMOGLOBIN 26.7 pg (27.0-33.4); MEAN CORPUSCULAR HGB CONC 33.6 g/dL (32.0-36.0); MEAN CORPUSCULAR VOLUME 80 fl (80-97); PLATELET COUNT 465 10^3/uL (150-450); RED BLOOD COUNT 5.12 10^6/uL (3.72-5.28); RED CELL DISTRIBUTION WIDTH 14.7 % (11.5-14.0); WHITE BLOOD COUNT 21.8 10^3/uL (4.0-10.5)
[2019-09-07 11:33] LABS: ABSOLUTE LYMPHOCYTES# (MANUAL) 3.5 10^3/uL (0.5-4.7); ABSOLUTE MONOCYTES # (MANUAL) 1.7 10^3/uL (0.1-1.4); ANISOCYTOSIS SLIGHT; BAND NEUTROPHILS % (MANUAL) 1 % (3-5); BASOPHILS % (MANUAL) 0 % (0-2); EOSINOPHILS % (MANUAL) 0 % (0-6); LYMPHOCYTES % (MANUAL) 16 % (13-45); MONOCYTES % (MANUAL) 8 % (3-13); SEGMENTED NEUTROPHILS % (MAN) 75 % (42-78); TOTAL CELLS COUNTED 100
[2019-09-07 11:34] LABS: OVALOCYTES SLIGHT; POIKILOCYTOSIS SLIGHT; TEAR DROP CELLS SLIGHT
[2019-09-07 11:35] LABS: PLATELET COMMENT INCREASED
[2019-09-07] MEDS ORDERED: VANCOMYCIN HCL INJ 1000 MG VIAL IV ONE (12:58)
[2019-09-07] MEDS ORDERED: CEFTRIAXONE INJ 1000 MG VIAL IV ONE (12:58)
[2019-09-07] MEDS ORDERED: NORMAL SALINE 1000 ML 1,000 ML IV ONE (12:59)
[2019-09-07 15:08] LABS: ALBUMIN 4.3 g/dL (3.5-5.0); ALKALINE PHOSPHATASE 114 U/L (38-126); ANION GAP 11 (5-19); ASPARTATE AMINO TRANSFERASE 24 U/L (14-36); BILIRUBIN,DIRECT 0.1 mg/dL (0.0-0.4); BILIRUBIN,TOTAL 0.7 mg/dL (0.2-1.3); BLOOD UREA NITROGEN 12 mg/dL (7-20); CALCIUM 9.7 mg/dL (8.4-10.2); CARBON DIOXIDE 25 mmol/L (22-30); CHLORIDE 97 mmol/L (98-107); GLUCOSE 231 mg/dL (75-110); POTASSIUM 3.8 mmol/L (3.6-5.0); TOTAL PROTEIN 7.9 g/dL (6.3-8.2)
--- NOTE | 2019-09-07 15:10 | ER Document Report ---
Doctor's Note Notes: 09/07/19 15:05 This is a 39-year-old female I was requested to see along with midlevel provider. The patient is diabetic and hypertensive and poorly compliant with prescribed treatment. She [place] [facility] [place] She came in today because of a pilonidal cyst that been present for about a week and has become infected, inflamed and painful. I&D and packing of the cyst was performed by midlevel provider. Patient is afebrile but tachycardic and otherwise appears stable here but has a significantly elevated white count. We have given her dose of IV Rocephin and vancomycin. We are awaiting results of a serum lactate. Blood cultures have been drawn. Chemistry profile remains pending at this time. Patient does not appear toxic. Her abdomen is soft and nontender. Her chest is clear cardiac rhythm is tachycardic and regular without murmur gallop or rub. Patient states vehemently that she does not want to be admitted to the hospital. I suggested that we reevaluate her after she received some IV hydration and her IV antibiotics. We also need to be sure that her lactate level was not elevated.
--- NOTE | 2019-09-07 18:43 | RADIOLOGY REPORT (SQ) ---
EXAM DESCRIPTION: CT ABD/PELVIS WITH IV ONLY IMAGES COMPLETED DATE/TIME: 09/07/2019 6:01 pm REASON FOR STUDY: evaluation of pilodinal cyst COMPARISON: None. TECHNIQUE: CT scan of the abdomen and pelvis performed using helical scanning technique with dynamic intravenous contrast injection. No oral contrast. Images reviewed with lung, soft tissue, and bone windows. Reconstructed coronal and sagittal MPR images reviewed. Delayed images for evaluation of the urinary system also acquired. All images stored on PACS. All CT scanners at this facility use dose modulation, iterative reconstruction, and/or weight based d osing when appropriate to reduce radiation dose to as low as reasonably achievable (ALARA). [facility]: Dose Right [facility]: CareDose [facility]: Dose Right [facility]: Teradose 4D [facility]: Doppelgames CONTRAST TYPE AND DOSE: contrast/concentration: Isovue 350.00 mmol/ml; Total Contrast Delivered: 100 .0 ml; Total Saline Delivered: 72.0 ml RENAL FUNCTION: BUN 12; creatinine 0.51 RADIATION DOSE: CT Rad equipment meets quality standard of care and radiation dose reduction techniq ues were employed. CTDIvol: 18.8 - 21.1 mGy. DLP: 2438 mGy-cm.. LIMITATIONS: None. FINDINGS: LOWER CHEST: No significant findings. No nodules or infiltrates. LIVER: Normal size. No masses. No dilated ducts. SPLEEN: Normal size. No focal lesions. PANCREAS: No masses. No significant calcifications. No adjacent inflammation or peripancreatic fluid collections. Pancreatic duct not dilated. GALLBLADDER: No identified stones by CT criteria. No inflammatory changes to suggest cholecystitis. Mural calcifications are demonstrated. ADRENAL GLANDS: No significant masses or asymmetry. RIGHT KIDNEY AND URETER: No solid masses. No significant calcifications. No hydronephrosis or hyd roureter. LEFT KIDNEY AND URETER: No solid masses. No significant calcifications. No hydronephrosis or hydr oureter. AORTA AND VESSELS: No aneurysm. No dissection. Renal arteries, SMA, celiac without stenosis. RETROPERITONEUM: No retroperitoneal adenopathy, hemorrhage or masses. BOWEL AND PERITONEAL CAVITY: No masses or inflammatory changes. No free fluid or peritoneal masses. APPENDIX: Normal. PELVIS: No mass. No free fluid. Normal bladder. ABDOMINAL WALL: Small fat containing umbilical hernia. BONES: No significant or acute findings. OTHER: Subcutaneous fat stranding and hyperdense material are seen within the gluteal cleft, noting f ew foci of gas. IMPRESSION: Subcutaneous fat stranding is seen throughout the buttocks noting focal hyperdense mater ial and foci of subcutaneous gas within the gluteal cleft. This remains nonspecific and may represen t packing material in the setting of recent instrumentation. Incidental finding of so-called "porcelain gallbladder" which may be related to intermittent obstruct ion of the gallbladder or chronic cholecystitis. No definite mass or gallstones are evident. TECHNICAL DOCUMENTATION: JOB ID: [id number] Quality ID # [id number]: Final reports with documentation of one or more dose reduction techniques (e.g., Au tomated exposure control, adjustment of the mA and/or kV according to patient size, use of iterative reconstruction technique) 2010 [employer]- All Rights Reserved Reading location - IP/workstation name: [email or web address]
[2019-09-07 20:48] VITALS: BP 134/89
--- NOTE | 2019-09-07 22:07 | EKG REPORT ---
SEVERITY:- ABNORMAL ECG - SINUS TACHYCARDIA MARKEDLY POSTERIOR QRS AXIS ABNORMAL Q SUGGESTS ANTEROLATERAL INFARCT INFERIOR Q WAVES, PROBABLY NORMAL VARIATION LATERAL Q WAVES, PROBABLY NORMAL VARIATION : Confirmed by: Mounika Ocampo MD 07-Sep-2019 22:06:24
== END 2019-09-07 20:46 | disposition left against medical advice (07) ==
LOC: ER 07:34
DX: L05.01 Pilonidal cyst with abscess (principal); F17.200 Nicotine dependence, unspecified, uncomplicated; I50.9 Heart failure, unspecified; E78.00 Pure hypercholesterolemia, unspecified; I11.0 Hypertensive heart disease with heart failure; E11.9 Type 2 diabetes mellitus without complications; Z87.442 Personal history of urinary calculi
CPT/HCPCS: 93005; 99284; 96365; 96367; 36415; 87040; 87070; 87205; 83605; 85025; 81025; 87077; 80053; 84484; 87186; 74177; 93010; 10060; J3490; J0696; J7030; J3370; 87075

== ENCOUNTER 2019-09-08 14:19 | Emergency (ER) | payer SELFPAY ==
[2019-09-08] MEDS ORDERED: CEFTRIAXONE INJ 1000 MG VIAL IV ONE (14:53)
[2019-09-08] MEDS ORDERED: CLINDAMYCIN 600 MG/D5W RTU 600 MG/50 ML RTUPB IV ONE (14:53)
--- NOTE | 2019-09-08 14:57 | ER Document Report ---
ED Medical Screen (RME) - General Chief Complaint: Wound Recheck Stated Complaint: WOUND CHECK Time Seen by Provider: 09/08/19 14:53 Mode of Arrival: Ambulatory Information source: Patient Notes: 39-year-old female presented to ED for recheck of pilonidal cyst/abscess. She states it was I&D and packed yesterday. She states they wanted her to stay and be admitted but she refused. They did tell her to come back today to be reexamined. The packing is still intact. It is draining a lot of drainage. It is positive for gram-positive cocci. I have ordered her a gram of Rocephin and 600 of clindamycin as she has not had any of her medications yet today. I did put a sanitary pad on instead of 4 x 4's due to the amount of drainage. Patient is alert oriented respirations regular nonlabored speaking in full sentences. I have greeted and performed a rapid initial assessment of this patient. A comprehensive ED assessment and evaluation of the patient, analysis of test results and completion of medical decision making process will be conducted by an additional ED providers. TRAVEL OUTSIDE OF THE [place] IN LAST 30 DAYS: No - Related Data Allergies/Adverse Reactions: lisinopril [Lisinopril] Allergy (Severe, Verified 09/07/19 07:43) Swelling of Throat hydrocodone bitartrate [From Vicodin] Allergy (Intermediate, Verified 09/07/19 07:43) Hallucinations adalimumab [From Humira] Allergy (Verified 09/07/19 07:43) Past Medical History - Social History Frequency of alcohol use: Occasional Drug Abuse: Marijuana - Past Medical History Cardiac Medical History: Reports: Hx Congestive Heart Failure, Hx Hypercholesterolemia, Hx Hypertension Pulmonary Medical History: Reports: Hx Asthma Endocrine Medical History: Reports: Hx Diabetes Mellitus Type 2 Renal/ Medical History: Reports: Hx Kidney Stones. Denies: Hx Peritoneal Dialysis Psychiatric Medical History: Reports: Hx Depression Past Surgical History: Reports: Hx Section - Immunizations Immunizations up to date: No Hx Diphtheria, Pertussis, Tetanus Vaccination: No Physical Exam - Vital signs Vitals: Temp Pulse Resp BP Pulse Ox 97.9 F 117 H 18 156/98 H 96 09/08/19 14:22 09/08/19 14:22 09/08/19 14:22 09/08/19 14:22 09/08/19 14:22 Course - Vital Signs Vital signs: Temp Pulse Resp BP Pulse Ox 97.9 F 117 H 18 156/98 H 96 09/08/19 14:22 09/08/19 14:22 09/08/19 14:22 09/08/19 14:22 09/08/19 14:22
[2019-09-08 15:51] LABS: ABSOLUTE BASOPHILS # (AUTO) 0.2 10^3/uL (0.0-0.2); ABSOLUTE EOSINOPHILS # (AUTO) 0.4 10^3/uL (0.0-0.6); ABSOLUTE LYMPHOCYTES (AUTO) 2.8 10^3/uL (0.5-4.7); ABSOLUTE MONOCYTES (AUTO) 1.3 10^3/uL (0.1-1.4); ABSOLUTE NEUT (AUTO) 10.8 10^3/uL (1.7-8.2); EOSINOPHILS % (AUTO) 2.5 % (0-6); HEMATOCRIT 40.4 % (36.0-47.0); HEMOGLOBIN 13.7 g/dL (12.0-15.5); LYMPHOCYTES % (AUTO) 18.2 % (13-45); MEAN CORPUSCULAR HEMOGLOBIN 27.1 pg (27.0-33.4); MEAN CORPUSCULAR HGB CONC 33.8 g/dL (32.0-36.0); MEAN CORPUSCULAR VOLUME 80 fl (80-97); MONOCYTES % (AUTO) 8.1 % (3-13); PLATELET COUNT 418 10^3/uL (150-450); RED BLOOD COUNT 5.04 10^6/uL (3.72-5.28); RED CELL DISTRIBUTION WIDTH 14.8 % (11.5-14.0); SEGMENTED NEUTROPHILS % (AUTO) 70.2 % (42-78); TOTAL CELLS COUNTED % (AUTO) 100 %; WHITE BLOOD COUNT 15.5 10^3/uL (4.0-10.5)
[2019-09-08 16:00] LABS: ALBUMIN 4.2 g/dL (3.5-5.0); ALKALINE PHOSPHATASE 107 U/L (38-126); ANION GAP 13 (5-19); ASPARTATE AMINO TRANSFERASE 27 U/L (14-36); BILIRUBIN,DIRECT 0.2 mg/dL (0.0-0.4); BILIRUBIN,TOTAL 0.9 mg/dL (0.2-1.3); BLOOD UREA NITROGEN 8 mg/dL (7-20); CALCIUM 9.7 mg/dL (8.4-10.2); CARBON DIOXIDE 27 mmol/L (22-30); CHLORIDE 94 mmol/L (98-107); GLUCOSE 250 mg/dL (75-110); POTASSIUM 3.7 mmol/L (3.6-5.0); TOTAL PROTEIN 7.8 g/dL (6.3-8.2)
--- NOTE | 2019-09-08 16:02 | ER Document Report ---
ED General - General Chief Complaint: Wound Recheck Stated Complaint: WOUND CHECK Time Seen by Provider: 09/08/19 14:53 Primary Care Provider: CHYNA SEAY MD [Primary Care Provider] - Follow up as needed Mode of Arrival: Ambulatory Notes: CHIEF COMPLAINT: Recheck of pilonidal abscess HPI: 39-year-old female presenting back to the emergency department for recheck of a pilonidal abscess. Patient is a diabetic. Patient states she had the area incised and drained yesterday. States she was prescribed clindamycin and Keflex has not yet started these medications. States she does feel much better today than she did yesterday. ROS: See HPI - all other systems were reviewed and are otherwise negative Constitutional: no fever Eyes: no drainage, no blurred vision ENT: no runny nose, no sore throat Cardiovascular: no chest pain Resp: no SOB, no cough GI: no vomiting, no diarrhea, no abdominal pain : no dysuria Integumentary: Positive abscess Allergy: no hives Musculoskeletal: no extremity pain or swelling Neurological: no numbness/tingling, no weakness MEDICATIONS: I agree with the patient medications as charted by the RN. ALLERGIES: I agree with the allergies as charted by the RN. PAST MEDICAL HISTORY/PAST SURGICAL HISTORY: Reviewed and agree as charted by RN. SOCIAL HISTORY: Reviewed and agree as charted by RN. FAMILY HISTORY: No significant familial comorbid conditions directly related to patient complaint EXAM: Reviewed vital signs as charted by RN. CONSTITUTIONAL: Alert and oriented and responds appropriately to questions. Well-appearing; well-nourished HEAD: Normocephalic; atraumatic EYES: PERRL; Conjunctivae clear, sclerae non-icteric ENT: normal nose; no rhinorrhea; moist mucous membranes NECK: Supple without meningismus CARD: Mild tachycardia; no murmurs, no clicks, no rubs, no gallops; symmetric distal pulses RESP: Normal chest excursion without splinting or tachypnea; breath sounds clear and equal bilaterally; no wheezes, no rhonchi, no rales, pulse oximetry ABD/GI: Morbidly obese, normal bowel sounds; non-distended; soft, non-tender, no rebound, no guarding; no palpable organomegaly or masses. BACK: The back appears normal and is non-tender to palpation, there is no CVA tenderness EXT: Normal ROM in all joints; non-tender to palpation; no cyanosis, no effusions, no edema SKIN: Normal color for age and race; warm; dry; good turgor; pilonidal abscess noted with packing in place with some purulent discharge noted on dressing. There is some induration around the lesion unable to express a significant amount of further discharge at this time NEURO: Moves all extremities equally; Motor and sensory function intact PSYCH: The patient's mood and manner are appropriate. Grooming and personal hygiene are appropriate. MDM: 39-year-old female with an infected pilonidal abscess. Patient feels much better today than she did yesterday. She is mildly tachycardic states she was nervous about having the packing removed. I discussed this with her at length. I will refer her to surgery clinic. She may also follow-up with her PCP. Patient may remove half an inch of the packing daily and snip until packing has been completely removed or she follows up with surgery. She is to start her antibiotics today. She was given a dose of clindamycin and Rocephin in the emergency department via the triage process. Her WBC count has improved to 15.5 from 21.3 yesterday. As she clinically feels better plan to discharge after an tibiotics as long as heart rate has improved TRAVEL OUTSIDE OF THE [place] IN LAST 30 DAYS: No - Related Data Allergies/Adverse Reactions: lisinopril [Lisinopril] Allergy (Severe, Verified 09/07/19 07:43) Swelling of Throat hydrocodone bitartrate [From Vicodin] Allergy (Intermediate, Verified 09/07/19 07:43) Hallucinations adalimumab [From Humira] Allergy (Verified 09/07/19 07:43) Past Medical History - General Information source: Patient - Social History Smoking Status: Current Every Day Smoker Frequency of alcohol use: Occasional Drug Abuse: Marijuana Family History: Arthritis, CAD, DM, Hyperlipidemia, Hypertension - Past Medical History Cardiac Medical History: Reports: Hx Congestive Heart Failure, Hx Hypercholesterolemia, Hx Hypertension Pulmonary Medical History: Reports: Hx Asthma Endocrine Medical History: Reports: Hx Diabetes Mellitus Type 2 Renal/ Medical History: Reports: Hx Kidney Stones. Denies: Hx Peritoneal Dialysis Psychiatric Medical History: Reports: Hx Depression Past Surgical History: Reports: Hx Section - Immunizations Immunizations up to date: No Hx Diphtheria, Pertussis, Tetanus Vaccination: No Physical Exam - Vital signs Vitals: Temp Pulse Resp BP Pulse Ox 97.9 F 117 H 18 156/98 H 96 09/08/19 14:22 09/08/19 14:22 09/08/19 14:22 09/08/19 14:22 09/08/19 14:22 Course - Re-evaluation Re-evalutation: 09/08/19 16:04 We will have nursing recheck heart rate as long as it is improved patient may be discharged - Vital Signs Vital signs: Temp Pulse Resp BP Pulse Ox 97.9 F 117 H 18 156/98 H 96 09/08/19 14:22 09/08/19 14:22 09/08/19 14:22 09/08/19 14:22 09/08/19 14:22 - Laboratory Result Diagrams: 09/08/19 15:24 09/08/19 15:24 Laboratory results interpreted by me: 09/08/19 09/08/19 15:24 15:24 WBC 15.5 H RDW 14.8 H Absolute Neuts (auto) 10.8 H Sodium 134.2 L Chloride 94 L Creatinine 0.47 L Glucose 250 H Discharge - Discharge Clinical Impression: Encounter for recheck of abscess following incision and drainage Condition: Stable Disposition: HOME, SELF-CARE Additional Instructions: Make sure you start the antibiotics today. Follow-up with your primary care provider as well as the surgery clinic for more definitive management. If you develop fever greater than 101 or worsening condition return for reevaluation. You may remove half an inch of the packing daily and snip until the packing has been removed or you follow-up for recheck Referrals: CHYNA SEAY MD [Primary Care Provider] - Follow up as needed CHANDNI JAEGER MD [ACTIVE STAFF] - Follow up as needed
[2019-09-08 17:02] VITALS: BP 147/106
== END 2019-09-08 17:31 | disposition home or self-care (01) ==
LOC: ER 14:19
DX: L05.01 Pilonidal cyst with abscess (principal); F17.200 Nicotine dependence, unspecified, uncomplicated; E11.9 Type 2 diabetes mellitus without complications; I11.0 Hypertensive heart disease with heart failure; I50.9 Heart failure, unspecified; E78.00 Pure hypercholesterolemia, unspecified; Z87.442 Personal history of urinary calculi
CPT/HCPCS: 99283; 96365; 96367; 36415; 85025; 80053; J0696